=== PATIENT | female | born 1945 | race Caucasian/White ===

== ENCOUNTER 2021-06-23 21:02 | Inpatient (IN) ==
[2021-06-23] MEDS ORDERED: IOPAMIDOL 100 ML BOTTLE IV ONE ×2 (21:03)
[2021-06-23] MEDS ORDERED: ONDANSETRON 4 MG/2 ML VIAL IV ONE (21:49)
[2021-06-23] MEDS ORDERED: FAMOTIDINE/PF 20 MG/2 ML VIAL IV ONE (22:19)
[2021-06-23] MEDS ORDERED: 0.9 % SODIUM CHLORIDE 1,000 ML IV ONE ×2 (22:19→23:45)
[2021-06-23] MEDS ORDERED: PROCHLORPERAZINE 10 MG/2 ML VIAL IV ONE (22:19)
[2021-06-23] MEDS ORDERED: morphine 4 MG/ML VIAL IV ONE (22:19)
[2021-06-23 22:51] LABS: Basophils # (Auto) 0.02 K/mcL (0.00-0.30); Basophils % (Auto) 0.1 % (0.0-2.0); Eosinophils # (Auto) 0.14 K/mcL (0.00-0.70); Hemoglobin 14.3 g/dL (11.2-15.7); Lymphocytes # (Auto) 0.63 K/mcL (1.50-4.80); Lymphocytes % (Auto) 4.4 % (15.5-49.0); Mean Cell Volume 97.7 fL (80.0-100.0); Mean Corpuscular HGB Conc 33.3 g/dL (31.0-36.0); Mean Platelet Volume 13.6 fL (7.4-10.4); Monocytes % (Auto) 4.1 % (1.0-12.0); Neutrophils % (Auto) 90.4 % (38.0-78.0); Platelet Count 129 K/mcL (140-440); Red Cell Distribution Width 15.1 % (11.5-14.5); WBC 14.5 K/mcL (4.5-11.0)
[2021-06-23 23:32] LABS: ALT/SGPT 9 U/L (<40); AST/SGOT 18 U/L (<32); Albumin 4.4 gm/dL (3.2-5.2); Albumin/Globulin Ratio 1.8 (1.0-2.3); Alkaline Phosphatase 73 U/L (39-117); Bilirubin,Total 0.3 mg/dL (0.1-1.0); Blood Urea Nitrogen 25 mg/dL (8-23); Calcium 9.6 mg/dL (8.6-10.4); Carbon Dioxide 27 mmol/L (22-30); Chloride 103 mmol/L (96-108); Globulin 2.4 gm/dL (2.2-3.7); Glomerular Filtration Rate 63; Glucose 112 mg/dL (70-105)
[2021-06-24] MEDS ORDERED: morphine 4 MG/ML VIAL IV ONE (02:07)
[2021-06-24] MEDS ORDERED: PROCHLORPERAZINE 10 MG/2 ML VIAL IV ONE (02:23)
[2021-06-24] MEDS ORDERED: METOCLOPRAMIDE 10 MG/2 ML VIAL IV ONE (02:25)
--- NOTE | 2021-06-24 02:52 | Cat Scan Report ---
CLINICAL INFORMATION: Dyspnea COMPARISON: Chest CT 11/28/2010. TECHNIQUE: 50ml of Isovue-370 were injected intravenously. Using SmartPrep to maximize pulmonary artery opacification, .625mm helical slices were obtained from the lung apices through the lung bases. Following reconstruction, 2.5 mm sagittal, coronal, and axial reformations were processed. The exam was reviewed at mediastinal, lung, and bone windows. The exam was performed using radiation dose optimization techniques including, but not limited to, automated exposure control, adjustment of the mA and/or kV according to patient size and use of iterative reconstruction technique. FINDINGS: Pulmonary parenchymal windows mild interstitial edema throughout both lungs including the interlobular septa. In addition, mild patchy groundglass airspace disease in the bronchovascular regions of both lungs is compatible with alveolar edema. No residual infiltrates. No effusions. Mediastinal windows show the heart is moderately enlarged-increased from previous exam. There is mild dilatation of the left ventricle with a probable subendocardial infarct in the left ventricular apex. Mild calcified and fibrofatty lack is scattered in the coronary arteries. The pulmonary arteries show moderate diffuse enlargement compatible with CHF. There is no evidence of emboli. Thoracic aorta is normal diameter with diffuse intimal thickening. There is no adenopathy in the mediastinal, hilar or axillary regions. Gastric lap band is seen in the fundal region. Moderate diffuse wall thickening of the esophagus is new from prior exam and suggests peptic disease or other infiltrative process. Bone soft tissue chest wall show no abnormality. IMPRESSION: 1. Moderate congestive heart failure. No evidence of pulmonary embolus. The heart is moderately enlarged with a probable subendocardial infarct in the left ventricular apex. Please correlate clinically. 2. Diffuse wall thickening of the esophagus new from 2011 CT. This likely reflects peptic disease or other infiltrative process. Interpreted and Authenticated by: Joel Can 06/24/21
--- NOTE | 2021-06-24 03:00 | XRay Report ---
CLINICAL INFORMATION: COMPARISON: None. TECHNIQUE: PA and Lateral views FINDINGS: The heart is mildly enlarged. Thoracic aortic ectasia noted. The remaining mediastinum is normal. Pulmonary vessels are mildly distended and there is minimal interstitial edema throughout both lungs. No infiltrates or effusions. Left diaphragm slightly elevated. Bones and soft tissues are normal. IMPRESSION: Mild CHF. Interpreted and Authenticated by: Joel Can 06/24/21
[2021-06-24] MEDS ORDERED: PROCHLORPERAZINE 10 MG/2 ML VIAL IV PRN (03:09)
[2021-06-24] MEDS ORDERED: NALOXONE HCL 0.4 MG/ML VIAL IV PRN (03:11)
--- NOTE | 2021-06-24 03:17 | Emergency Department Note ---
HPI General Chief complaint: Nausea/Vomiting/Diarrhea Stated complaint: N/V Time Seen by Provider: 06/23/21 21:22 Source: patient Mode of arrival: wheelchair Limitations: no limitations History of Present Illness HPI Narrative: 76-year-old female with remote history of lap band in 2004, MS, ankylosing spondyloarthritis on methotrexate, presents to the emergency department acute nausea vomiting since 3 PM this afternoon. Initially clear and then consisting of food. No bile or blood. However nausea persisted and so comes into the ER. States normal bowel movement today. With no melena gross blood. Epigastric discomfort pain constant 10 out of 10. No fevers or chills. No chest pain shortness of breath. No recent travel sick contacts ingestion of undercooked raw or spoiled foods. and daughter at bedside. Related Data Home Medications Medication Instructions Recorded Confirmed multivit with 1 tab PO QDAY tab 05/29/17 03/12/21 uqyhgpak-onsg-ZV-lutein 8 mg iron-400 mcg-300 mcg tablet (Centrum Silver Women) potassium chloride 10 mEq 10 meq PO QDAY 05/29/17 03/12/21 capsule,extended release topiramate 100 mg tablet (Topamax) 100 mg PO QDAY tab 05/29/17 03/12/21 acetaminophen 650 mg 650 mg PO Q8H tab 11/26/20 03/12/21 tablet,extended release (Tylenol 8 Hour) calcium citrate-vitamin D3 PO QDAY 11/26/20 03/12/21 [Calcium Citrate + D] diclofenac sodium 1 % topical gel See Rx Instructions TOPICAL TID g 11/26/20 03/12/21 (Voltaren) duloxetine 30 mg capsule,delayed 30 mg PO BID 11/26/20 03/12/21 release hydrocodone 7.5 mg-acetaminophen 1 tab PO Q12H PRN tab 11/26/20 03/12/21 325 mg tablet levothyroxine 112 mcg capsule 112 mcg PO QDAY 11/26/20 03/12/21 (Tirosint) modafinil 200 mg tablet 200 mg PO QAM 11/26/20 03/12/21 simvastatin 20 mg tablet (Zocor) 20 mg PO QHS 11/26/20 03/12/21 amoxicillin 500 mg tablet 2,000 mg PO ONCE PRN tab 11/27/20 03/12/21 baclofen 10 mg tablet 10 mg PO QDAY PRN tab 11/27/20 03/12/21 clonazepam 0.5 mg tablet 0.5 mg PO QHS tab 11/27/20 03/12/21 cyanocobalamin (vitamin B-12) 3,000 mcg IM QMONTH ml 11/27/20 03/12/21 1,000 mcg/mL injection solution kulwant's leg cramp .ROUTE 11/27/20 03/12/21 ldojr-usqja-4-[id number]-ees-hsykej PO 11/27/20 03/12/21 naproxen sodium 220 mg capsule 220 mg PO ONCE cap 11/27/20 03/12/21 (Aleve) pregabalin [Lyrica] PO BID 11/27/20 03/12/21 Previous Rx's Medication Instructions Recorded Ketamine nasal spray 50mg/mL (0.1 See Rx Instructions .ROUTE 02/04/21 mL per spray) .COMPLEX #30 unit celecoxib 100 mg capsule 100 mg PO BID #60 cap 04/02/21 Allergies Allergy/AdvReac Type Severity Reaction Status Date / Time acetaminophen Allergy Unknown Unknown Verified 06/23/21 21:05 adhesive tape AdvReac Intermediate Unknown Verified 06/23/21 21:05 cephalexin AdvReac Intermediate Unknown Verified 06/23/21 21:05 Sulindac [From Clinoril] AdvReac Intermediate Unknown Verified 06/23/21 21:05 propoxyphene napsylate Allergy Unknown Unknown Uncoded 11/27/20 14:34 Review of Systems ROS ROS Narrative: 10 point review of system is otherwise negative except as mentioned in HPI. PFSH Narrative Patient History Narrative: Narrative: Medical/Surgical/Family History All Active Problems History of cataract extraction (Chronic ~2012) Hx of laparoscopic gastric banding (Chronic ~2004) History of surgery (Chronic) Undifferentiated inflammatory polyarthritis (Chronic) Encounter for long-term current use of high risk medication (Chronic) Polyarthralgia (Chronic) Myalgia (Chronic) Back pain (Chronic) Medical History Ankylosing spondylitis Back pain Bilateral ankle pain Bilateral elbow joint pain Bilateral hand pain Bilateral knee pain Bilateral leg pain Bilateral primary osteoarthritis of knee Central stenosis of spinal canal Cerebral arteritis Chronic neck pain Chronic shoulder pain DDD (degenerative disc disease) Depression Difficulty staying asleep Difficulty swallowing Dry eyes Dry mouth Easy bruising Encounter for long-term current use of high risk medication Facet arthropathy Fatigue Fibromyalgia Gastritis GCA (giant cell arteritis) Heart murmur History of compression fracture of spine (~11/2017) L2-L3 History of dysmenorrhea Hyperlipidemia Idiopathic progressive neuropathy Impairment of balance Inflammatory polyarthropathy Intervertebral disc disorder with radiculopathy of lumbar region Intervertebral disc protrusion Joint pain Joint stiffness Knee osteoarthritis Left shoulder pain Leg cramps Leg numbness Leg weakness Low back pain Lumbar nerve root impingement Memory loss Migraines Multifactorial functional impairment Multiple sclerosis Muscle spasm Muscle tenderness Musculoskeletal pain Myalgia Neurologic abnormality Night sweats Numbness and tingling of both feet Numbness in both hands Obesity On custodial drug therapy Osteoarthritis Paralyzed hemidiaphragm Peripheral neuropathy Polyarthralgia Sleep apnea Spine pain Thrombocytopenia Thyroid cancer (~2017) TMJ pain dysfunction syndrome Undifferentiated inflammatory polyarthritis Vitamin D deficiency Surgical History History of cataract extraction (~2012) History of surgery Synovial cyst Rt 4th toe Hx of laparoscopic gastric banding (~2004) Family History Mother , Age 79 - Sepsis Osteoarthritis Rheumatoid arthritis Osteoporosis Colon cancer Colitis Heart disease Hypertension Father , Age 58 - Gun Shot Wound Osteoarthritis Social History Smoking Status: Never smoker Alcohol Intake Frequency: does not drink Substance Use: does not use Exam Narrative Narrative: (Please note that portions of this note may have been completed with a voice recognition program. Efforts were made to edit the dictations but occasionally words are mis-transcribed) CONSTITUTIONAL: Well-nourished pleasant polite elderly female. Appears uncomfortable nauseous. not in acute distress. Non toxic. Awake alert and oriented x3. Cooperative, follows commands. HEAD: Normocephalic. Atraumatic. EYES: EOMI ENT: MM dry NECK: Supple. Soft cervical collar in place secondary to cervical lumbar radiculopathy spinal stenosis. Trachea midline CARDIOVASCULAR: Adequate peripheral perfusion. S1-S2. Regular rate and rhythm. No murmurs rubs gallops. No JVD. No lower extremity edema. +2 radial pulses bilaterally. PULMONARY: Nonlabored. Speaking full sentences. Clear to auscultation bilaterally. No rhonchi wheeze or crackles. ABDOMINAL: Soft. Nondistended. Lap band palpated in the right epigastric region. She is tender in the epigastric region with mild guarding no rebound or rigidity. Positive bowel sounds. EXTREMITIES: No gross deformities. Moves all 4 extremities with good strength and tone. SKIN: Warm and dry. No rash. No petechiae. NEUROLOGY: Sensation is intact. No gross focal deficits. GCS of 15 General Limitations: no limitations Course Vital Signs Vital signs: Vital Signs Temperature 36.1 C 06/23/21 21:03 Pulse Rate 66 06/23/21 21:03 Respiratory Rate 18 06/23/21 21:03 Blood Pressure 179/84 06/23/21 21:03 Pulse Oximetry (%) 96 06/23/21 21:03 Temperature 36.1 C 06/23/21 21:03 Pulse Rate 74 06/24/21 03:00 Respiratory Rate 18 06/23/21 21:03 Blood Pressure 152/74 06/23/21 23:31 Pulse Oximetry (%) 100 06/24/21 03:00 MDM MDM Narrative Medical decision making narrative: Differential diagnosis includes obstruction ileus rupture viral bacterial gastroenteritis colitis UTI pyelonephritis sepsis bacteremia constipation etc. History and physical are consistent with a possible small bowel obstruction. NPO. IV fluid hydration. Zofran Pepcid. States continued nausea. Compazine morphine have been given. She is resting more comfortably. Twelve-lead EKG per ED MD interpretation does show sinus bradycardia at 53 bpm. Normal axis. No ST elevations or depressions. No T wave abnormalities. No ectopy. Normal intervals. No old EKG. I was called to bedside secondary to reported hypoxia h owever asymptomatic to 88%. Unclear if this is secondary to the morphine. She is awake alert oriented x4. She denies chest pain shortness of breath. Did drop to 88%. Was placed on 2 L. Lungs remain clear to auscultation bilaterally. She is lying down supine at a slight angle 30 degrees secondary to spinal stenosis. Has no respiratory distress. 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 Chest x-ray was obtained and troponin was added. Troponin is negative. Chest x-ray per ED MD interpretation does show a widened mediastinum with cardiomegaly. However had already obtained CT abdomen pelvis with IV contrast. And per radiologist does show a la paroscopic adjustable gastric band which surrounds the upper portion of the stomach and appears to be in the appropriate position. However she does have a small bowel obstruction transition point is indeterminate probably in the right lower quadrant. Mild ascites noted in the perihepatic perisplenic and cul-de-sac. Diverticulosis without diverticulitis. Normal appendix. Bilateral nonobstructive renal stones. Patient remains n.p.o. Continues to be nauseous. And so IV Reglan has been ordered. As well as IV morphine for return of pain control. I did speak to the patient regards to findings clinical impressions and treatment plan. I am hesitant to place an NG tube secondary to this LAP- BAND and concern for rupture. And so will remain n.p.o. CT angio of the chest was ordered secondary to the abnormal chest x-ray. And was bolused a second liter of 0.9 normal saline secondary to the IV dye load. CTA of the chest per radiologist shows no pulmonary embolus. Does show moderate congestive heart failure. Enlarged heart. Concern for subendocardial infarct in the left ventricular apex. Again EKG showed no ischemic changes. And troponin was negative. She has no chest pain or shortness of breath. On reevaluation after the second liter she remains clear to auscultation bilaterally. She is on [address] also shows diffuse wall thickening of the esophagus which is new since 2010. Which could represent peptic ulcer disease. She did receive Pepcid will order IV Protonix. Again updated patient and on results clinical impressions treatment plan. Minute. Agreeable questions have been answered at length. Urine analysis was dipped. Dr. Holly was spoken to at approximately 3:15 AM. And has accepted patient. Bridging orders have been placed. Agrees with no NG tube at this time. Initially I was going to order Lasix. He advises against diuresis secondary to likely third spacing from nausea vomiting SBO. Will be started on maintenance fluid low-dose at 30 cc an hour. Final Impressions: 1. acute SBO 2. fluid overload 3. chronic thrombocytopenia, on MTX Disposition: med sx Condition: fair Lab Data Result diagrams: 06/23/21 22:18 06/23/21 22:18 Labs: Lab Results 06/23/21 06/23/2122 Range/Units 22:18 22:18 22:18 WBC 14.5 H (4.5-11.0) K/mcL RBC 4.40 (3.59-5.38) M/mcL Hgb 14.3 (11.2-15.7) g/dL Hct 43.0 (34.1-44.9) % MCV 97.7 (80.0-100.0) fL MCH 32.5 (26.0-34.0) pg MCHC 33.3 (31.0-36.0) g/dL RDW 15.1 H (11.5-14.5) % Plt Count 129 L (140-440) K/mcL MPV 13.6 H (7.4-10.4) fL Neut % (Auto) 90.4 H (38.0-78.0) % Lymph % (Auto) 4.4 L (15.5-49.0) % Borden % (Auto) 4.1 (1.0-12.0) % Eos % (Auto) 1.0 (0.0-7.0) % Baso % (Auto) 0.1 (0.0-2.0) % Lymph # (Auto) 0.63 L (1.50-4.80) K/mcL Borden # (Auto) 0.60 (0.10-0.90) K/mcL Eos # (Auto) 0.14 (0.00-0.70) K/mcL Baso # (Auto) 0.02 (0.00-0.30) K/mcL Absolute Neutrophils 13.09 H (1.80-8.00) K/mcL VBG Lactic Acid (0.5-2.0) mmol/L Sodium 142 (133-145) mmol/L Potassium 4.0 (3.3-5.1) mmol/L Chloride 103 (96-108) mmol/L Carbon Dioxide 27 (22-30) mmol/L Anion Gap 12.0 (8.0-16.0) BUN 25 H (8-23) mg/dL Creatinine 0.9 (0.6-1.1) mg/dL GFR Calculation 63 Glucose 112 H (70-105) mg/dL Calcium 9.6 (8.6-10.4) mg/dL Magnesium 1.7 (1.6-2.5) mg/dL Total Bilirubin 0.3 (0.1-1.0) mg/dL AST 18 (<32) U/L ALT 9 (<40) U/L Alkaline Phosphatase 73 (39-117) U/L Troponin T < 0.01 (<0.03) ng/mL Total Protein 6.8 (5.9-8.4) gm/dL Albumin 4.4 (3.2-5.2) gm/dL Globulin 2.4 (2.2-3.7) gm/dL Albumin/Globulin Ratio 1.8 (1.0-2.3) Lipase 25 (7-60) U/L 06/23/21 Range/Units 23:05 WBC (4.5-11.0) K/mcL RBC (3.59-5.38) M/mcL Hgb (11.2-15.7) g/dL Hct (34.1-44.9) % MCV (80.0-100.0) fL MCH (26.0-34.0) pg MCHC (31.0-36.0) g/dL RDW (11.5-14.5) % Plt Count (140-440) K/mcL MPV (7.4-10.4) fL Neut % (Auto) (38.0-78.0) % Lymph % (Auto) (15.5-49.0) % Borden % (Auto) (1.0-12.0) % Eos % (Auto) (0.0-7.0) % Baso % (Auto) (0.0-2.0) % Lymph # (Auto) (1.50-4.80) K/mcL Borden # (Auto) (0.10-0.90) K/mcL Eos # (Auto) (0.00-0.70) K/mcL Baso # (Auto) (0.00-0.30) K/mcL Absolute Neutrophils (1.80-8.00) K/mcL VBG Lactic Acid 1.9 (0.5-2.0) mmol/L Sodium (133-145) mmol/L Potassium (3.3-5.1) mmol/L Chloride (96-108) mmol/L Carbon Dioxide (22-30) mmol/L Anion Gap (8.0-16.0) BUN (8-23) mg/dL Creatinine (0.6-1.1) mg/dL GFR Calculation Glucose (70-105) mg/dL Calcium (8.6-10.4) mg/dL Magnesium (1.6-2.5) mg/dL Total Bilirubin (0.1-1.0) mg/dL AST (<32) U/L ALT (<40) U/L Alkaline Phosphatase (39-117) U/L Troponin T (<0.03) ng/mL Total Protein (5.9-8.4) gm/dL Albumin (3.2-5.2) gm/dL Globulin (2.2-3.7) gm/dL Albumin/Globulin Ratio (1.0-2.3) Lipase (7-60) U/L Discharge Plan Patient/Caregiver Discharge Instructions Pt seen by [facility] [employer]MER/PA only: No Patient Disposition: Xfer As Inpt ([facility]) Follow up with: Savana Downey MD [Primary Care Provider] - Prescriptions: No Action Ketamine nasal spray 50mg/mL (0.1 mL per spray) See Rx Instructions .ROUTE .COMPLEX Qty: 30 2RF Rx Instructions: 2 sprays each nostril Q4-6 hours PRN severe headache celecoxib 100 mg capsule 100 mg PO BID Qty: 60 2RF calcium citrate-vitamin D3 [Calcium Citrate + D] PO QDAY 0RF simvastatin [Zocor] 20 mg tablet 20 mg PO QHS 0RF duloxetine 30 mg capsule,delayed release(DR/EC) 30 mg PO BID 0RF modafinil 200 mg tablet 200 mg PO QAM 0RF hydrocodone-acetaminophen 7.5-325 mg tablet 1 tab PO Q12H PRN0RF levothyroxine [Tirosint] 112 mcg capsule 112 mcg PO QDAY 0RF acetaminophen [Tylenol 8 Hour] 650 mg tablet extended release 650 mg PO Q8H 0RF cyanocobalamin (vitamin B-12) 1,000 mcg/mL solution 3,000 mcg IM QMONTH 0RF pregabalin [Lyrica] PO BID 0RF Rx Instructions: 300 mg tdtzlbsf-wbe-fvdr-FA-lutein [Centrum Silver Women] 8 mg iron-400 mcg-300 mcg tablet 1 tab PO QDAY 0RF potassium chloride 10 mEq capsule, extended release 10 meq PO QDAY 0RF topiramate [Topamax] 100 mg tablet 100 mg PO QDAY 0RF diclofenac sodium [Voltaren] 1 % gel See Rx Instructions TOPICAL TID 0RF Label Comments: 400iu TOPICAL QID Rx Instructions: 400iu TOPICAL Tid topical three times daily baclofen 10 mg tablet 10 mg PO QDAY PRN0RF clonazepam 0.5 mg tablet 0.5 mg PO QHS 0RF naproxen sodium [Aleve] 220 mg capsule 220 mg PO ONCE 0RF amoxicillin 500 mg tablet 2,000 mg PO ONCE PRN0RF kulwant's leg cramp .Route 0RF Rx Instructions: 3 nightly buxze-wvtmi-2-qlh-kiw-jaehky PO 0RF
[2021-06-24 03:40] LABS: proBNP 188.1 pg/mL (<125.0)
[2021-06-24] MEDS: 0.9 % SODIUM CHLORIDE 1,000 ML IV SCH (04:07)
--- NOTE | 2021-06-24 04:13 | Cat Scan Report ---
CLINICAL INFORMATION: Abdominal pain nausea and vomiting. History of lap band COMPARISON: Abdomen and pelvic CT 04/19/2017 TECHNIQUE: Following enteric contrast, 80 cc of Isovue-370 were injected intravenously, and 60 seconds later, 0.625 mm helical slices were obtained from the mid heart through the subtrochanteric regions. Following reconstruction, 2.5 mm sagittal, coronal and axial reformatted images were processed and reviewed at bone, lung and soft tissue windows. Five minutes later, 0.625 mm helical slices were obtained from the mid heart through the kidneys and viewed at soft tissue windows.The exam was performed using radiation dose optimization techniques including, but not limited to, automated exposure control, adjustment of the mA and/or kV according to patient size and use of iterative reconstruction technique. FINDINGS: The lung bases show minimal subsegmental atelectasis. There are no effusions. The heart is mildly enlarged. Abdominal images show mild fatty change within the liver, but no focal hepatic lesion. The gallbladder and bile ducts are normal for age: CBD is 7 mm. Both adrenal glands, spleen, pancreas and aorta, including aortic branches, are normal in size configuration and attenuation without focal lesion. Both kidneys are normal and symmetric in size, position, configuration and attenuation: the left is 10 cm in length and the right is approximately 9.5 cm in length. There are two nonobstructing stones within the inferior calyces of the left kidney, 4 mm and 2 mm, respectively. A 2 mm nonobstructing stone seen within the superior calyx of the left kidney. 2.3 cm simple cyst noted inferior pole of the right kidney. Pelvic images show the urinary bladder is unremarkable. Uterus is anteflexed and normal menopausal size spanning 5 x 3 cm. There appears to be thickening of endometrium-16 mm which is new from the previous exam. The region of the ovaries is normal. Gastric lap band is properly positioned encircling the gastric fundus. Mild wall thickening of the distal thoracic esophagus likely reflects peptic disease. The stomach, duodenum and jejunum are moderately dilated to the false pelvis level. The ileum is markedly decompressed with minimal stool within the colon. Findings compatible with a high-grade partial small bowel obstruction of the distal jejunum due to adhesions or stricture. The exact transition point is indeterminate. Small amount of free fluid is noted in the perihepatic, perisplenic and intrapelvic region. There is no free air or adenopathy. Bone windows show degenerative changes in the lumbar spine with spondylitic defects at L4-5. IMPRESSION: 1. High-grade partial small bowel obstruction of the distal jejunum. Transition point is indeterminate. It appears to be due to adhesions or stricture. Small amount of free fluid in the abdomen and pelvis suggests early third spacing. There is no free air to suggest perforation. 2. Small nonobstructing stones in each kidney as previously seen. 3. Mild thickening of the endometrium. This could also indicate the presence of a fibroid. Suggest pelvic ultrasound for further evaluation. 4. Gastric lap band properly positioned. There is mild wall thickening the distal esophagus which could indicate peptic disease or other infiltrative process. Interpreted and Authenticated by: Joel Can 06/24/21
[2021-06-24] MEDS: ONDANSETRON 4 MG/2 ML VIAL IV SCH ×3 (05:33→22:13)
[2021-06-24] MEDS: PANTOPRAZOLE 40 MG VIAL IV SCH ×3 (07:03→16:27)
[2021-06-24] MEDS: morphine 4 MG/ML VIAL IV PRN ×2 (10:23→19:55)
[2021-06-24 10:49] LABS: proBNP 696.9 pg/mL (<125.0)
[2021-06-24] MEDS: METOCLOPRAMIDE 10 MG/2 ML VIAL IV SCH ×3 (12:02→23:50)
--- NOTE | 2021-06-24 13:46 | General Surg History&Physical ---
HPI History of Present Illness Patient information: Note initiated : 06/24/21 at 1:31 pm Service Date, if different from initiated Date: [] Patient: Tammy Escalante 76 y/o F admitted on 06/24/21 for N/V. Chief Complaint: [] Chief complaint: Small bowel obstruction History of present illness: Ms. Escalante is a 76 year old F admitted for treatment of possible small bowel obstruction. The patient states that she had acute onset of epigastric pain extending across her upper and lower abdomen. This was followed by nausea with vomiting. She finally sought attention in the emergency room. It was noted that she had a mildly elevated white count and CT evidence of a possible small bowel obstruction. The patient states that she had regular bowel movement with flatus at 1930 hrs. last evening. She has not had any since that time. She has tenderness to palpation in her upper abdomen but denies nausea at this time. Clinically the patient is nontoxic and she may very well have adynamic ileus. She is admitted and will have small bowel follow-through in the morning. She has a history of a LAP-BAND surgery in 2004 and had weight loss from 300 pounds to 180 pounds. She has not had other abdominal surgery. Review of Systems All systems: reviewed and no additional remarkable complaints except as stated (Arthritis arthralgia) Constitutional Constitutional: Present weight loss; Absent fatigue or malaise Cardiovascular Cardiovascular: Absent dyspnea on exertion, palpatations or rapid heart rate Gastrointestinal Gastrointestinal: Present abdominal pain, cramping, early satiety, nausea and vomiting Musculoskeletal Musculoskeletal: Present arthralgias, back pain and myalgias Neurological Neurological: Absent abnormal gait, abnormal speech, dizziness, focal weakness, headache(s) or memory loss Psychiatric Psychiatric: Absent abnormal sleep pattern or depression Hematologic/Lymphatic Hematologic/Lymphatic: Absent easy bleeding, easy bruising or lymphadenopathy Allergic/Immunologic Allergic/Immunologic: Absent tongue swelling, throat swelling, uticaria, wheezing or lip swelling PFSH PFSH All Active Problems (Updated 06/24/21 @ 13:45 by Dylon Holly MD) History of sleep apnea (Acute) Multiple sclerosis (Acute) Degenerative disc disease (Acute) Partial small bowel obstruction (Acute) History of cataract extraction (Chronic ~2012) Hx of laparoscopic gastric banding (Chronic ~2004) History of surgery (Chronic) Undifferentiated inflammatory polyarthritis (Chronic) Encounter for long-term current use of high risk medication (Chronic) Polyarthralgia (Chronic) Myalgia (Chronic) Back pain (Chronic) Medical History Ankylosing spondylitis Back pain Bilateral ankle pain Bilateral elbow joint pain Bilateral hand pain Bilateral knee pain Bilateral leg pain Bilateral primary osteoarthritis of knee Central stenosis of spinal canal Cerebral arteritis Chronic neck pain Chronic shoulder pain DDD (degenerative disc disease) Depression Difficulty staying asleep Difficulty swallowing Dry eyes Dry mouth Easy bruising Encounter for long-term current use of high risk medication Facet arthropathy Fatigue Fibromyalgia Gastritis GCA (giant cell arteritis) Heart murmur History of compression fracture of spine (~11/2017) L2-L3 History of dysmenorrhea Hyperlipidemia Idiopathic progressive neuropathy Impairment of balance Inflammatory polyarthropathy Intervertebral disc disorder with radiculopathy of lumbar region Intervertebral disc protrusion Joint pain Joint stiffness Knee osteoarthritis Left shoulder pain Leg cramps Leg numbness Leg weakness Low back pain Lumbar nerve root impingement Memory loss Migraines Multifactorial functional impairment Multiple sclerosis Muscle spasm Muscle tenderness Musculoskeletal pain Myalgia Neurologic abnormality Night sweats Numbness and tingling of both feet Numbness in both hands Obesity On penitentiary drug therapy Osteoarthritis Paralyzed hemidiaphragm Peripheral neuropathy Polyarthralgia Sleep apnea Spine pain Thrombocytopenia Thyroid cancer (~2017) TMJ pain dysfunction syndrome Undifferentiated inflammatory polyarthritis Vitamin D deficiency Surgical History History of cataract extraction (~2012) History of surgery Synovial cyst Rt 4th toe Hx of laparoscopic gastric banding (~2004) Family History Mother , Age 79 - Sepsis Osteoarthritis Rheumatoid arthritis Osteoporosis Colon cancer Colitis Heart disease Hypertension Father , Age 58 - Gun Shot Wound Osteoarthritis Social History marital status: education level: college occupational status: disabled physical activity: none smoking status: Never smoker alcohol intake frequency: does not drink substance use type: does not use MEDS/ALLERGIES Home Medications and Allergies Home Medications Medication Instructions Recorded Confirmed Type potassium chloride 10 mEq 10 meq PO HS 05/29/17 06/24/21 History capsule,extended release topiramate 100 mg tablet (Topamax) 100 mg PO HS tab 05/29/17 06/24/21 History acetaminophen 650 mg 650 mg PO Q8H tab 11/26/20 06/24/21 History tablet,extended release (Tylenol 8 Hour) calcium citrate-vitamin D3 See Rx Instructions .ROUTE .COMPLEX 11/26/20 06/24/21 History [Calcium Citrate + D] diclofenac sodium 1 % topical gel See Rx Instructions TOPICAL TID g 11/26/20 06/24/21 History (Voltaren) duloxetine 30 mg capsule,delayed 30 mg PO DAILY 11/26/20 06/24/21 History release levothyroxine 112 mcg capsule 112 mcg PO QDAY 11/26/20 06/24/21 History (Tirosint) modafinil 200 mg tablet 200 mg PO QAM 11/26/20 06/24/21 History simvastatin 20 mg tablet (Zocor) 20 mg PO QHS 11/26/20 06/24/21 History amoxicillin 500 mg tablet 2,000 mg PO ONCE PRN tab 11/27/20 06/24/21 History baclofen 10 mg tablet 10 mg PO HS tab 11/27/20 06/24/21 History clonazepam 0.5 mg tablet 0.25 mg PO QHS tab 11/27/20 06/24/21 History cyanocobalamin (vitamin B-12) 3,000 mcg IM QMONTH ml 11/27/20 06/24/21 History 1,000 mcg/mL injection solution kulwant's leg cramp 3 tab PO HS 11/27/20 06/24/21 History [id number] 575 mg PO HS 11/27/20 06/24/21 History pregabalin [Lyrica] 300 mg PO BID 11/27/20 06/24/21 History Ketamine nasal spray 50mg/mL (0.1 See Rx Instructions .ROUTE 06/24/21 06/24/21 History mL per spray) .COMPLEX PRN calcitriol 0.25 mcg capsule 1 cap PO QDAY 06/24/21 06/24/21 History celecoxib 100 mg capsule 200 mg PO BID 06/24/21 06/24/21 History folic acid 1 mg tablet 5 mg PO HS 06/24/21 06/24/21 History hydrocodone 7.5 mg-acetaminophen 7.5 - 325 tab PO PRN PRN 06/24/21 06/24/21 History 325 mg tablet methotrexate sodium 2.5 mg tablet 5 tab PO WEEKLY 06/24/21 06/24/21 History Allergies Allergy/AdvReac Type Severity Reaction Status Date / Time acetaminophen Allergy Unknown Unknown Verified 06/24/21 05:19 adhesive tape AdvReac Intermediate Unknown Verified 06/24/21 05:19 cephalexin AdvReac Intermediate Unknown Verified 06/24/21 05:19 Sulindac [From Clinoril] AdvReac Intermediate Unknown Verified 06/24/21 05:19 propoxyphene napsylate Allergy Unknown Unknown Uncoded 11/27/20 14:34 Physical Examination Vital Signs Vital signs: Temp Pulse Resp BP Pulse Ox 98.4 F 85 20 146/73 94 06/24/21 08:00 06/24/21 08:00 06/24/21 08:00 06/24/21 08:00 06/24/21 08:00 General physical appearance General physical exam: well developed, well nourished, moderate distress, moderate pain and other (Overweight) Eyes Eye exam: PERRL and normal ocular movement ENT ENT exam: normal mucosa, no hearing loss and no congestion Head Head exam IM: Present atraumatic, normal inspection and normocephalic Neck Neck exam: no masses, no bruits, trachea midline, no lymphadenopathy and no venous distension Cardiovascular Cardiovascular exam IM: Present normal rate and rhythm, RRR, +S1 and +S2; Absent JVD or tachycardia Respiratory Respiratory exam: normal expansion, normal respiratory effort and clear to auscultation Abdomen Abdomen: Present tender (RUQ), bowel sounds (Normal bowel sounds) and distended (Mild abdominal distention) Integumentary Integumentary: Present no rash, no growths and no abnormal pigmentation Neurologic Neurologic: Present normal coordination and normal sensation Musculoskeletal Musculoskeletal: Present normal gait and normal posture Psychiatric Psychiatric: Present oriented to time, oriented to person, oriented to place, speech is normal and memory intact Results Labs Result diagrams: 06/23/21 22:18 06/23/21 22:18 Labs: Abnormal lab results 06/23/21 06/23/21 06/23/21 Range/Units 22:18 22:18 22:18 WBC 14.5 H (4.5-11.0) K/mcL RDW 15.1 H (11.5-14.5) % Plt Count 129 L (140-440) K/mcL MPV 13.6 H (7.4-10.4) fL Neut % (Auto) 90.4 H (38.0-78.0) % Lymph % (Auto) 4.4 L (15.5-49.0) % Lymph # (Auto) 0.63 L (1.50-4.80) K/mcL Absolute Neutrophils 13.09 H (1.80-8.00) K/mcL BUN 25 H (8-23) mg/dL Glucose 112 H (70-105) mg/dL NT-Pro-B Natriuret Pep 188.1 H (<125.0) pg/mL 06/24/21 Range/Units 09:24 WBC (4.5-11.0) K/mcL RDW (11.5-14.5) % Plt Count (140-440) K/mcL MPV (7.4-10.4) fL Neut % (Auto) (38.0-78.0) % Lymph % (Auto) (15.5-49.0) % Lymph # (Auto) (1.50-4.80) K/mcL Absolute Neutrophils (1.80-8.00) K/mcL BUN (8-23) mg/dL Glucose (70-105) mg/dL NT-Pro-B Natriuret Pep 696.9 H (<125.0) pg/mL Diabetes panel 06/23/21 Range/Units 22:18 Sodium 142 (133-145) mmol/L Potassium 4.0 (3.3-5.1) mmol/L Chloride 103 (96-108) mmol/L Carbon Dioxide 27 (22-30) mmol/L BUN 25 H (8-23) mg/dL Creatinine 0.9 (0.6-1.1) mg/dL Glucose 112 H (70-105) mg/dL Calcium 9.6 (8.6-10.4) mg/dL AST 18 (<32) U/L ALT 9 (<40) U/L Alkaline Phosphatase 73 (39-117) U/L Total Protein 6.8 (5.9-8.4) gm/dL Albumin 4.4 (3.2-5.2) gm/dL Calcium panel 06/23/21 Range/Units 22:18 Calcium 9.6 (8.6-10.4) mg/dL Albumin 4.4 (3.2-5.2) gm/dL Pituitary panel 06/23/21 Range/Units 22:18 Sodium 142 (133-145) mmol/L Potassium 4.0 (3.3-5.1) mmol/L Chloride 103 (96-108) mmol/L Carbon Dioxide 27 (22-30) mmol/L BUN 25 H (8-23) mg/dL Creatinine 0.9 (0.6-1.1) mg/dL Glucose 112 H (70-105) mg/dL Calcium 9.6 (8.6-10.4) mg/dL Adrenal panel 06/23/21 Range/Units 22:18 Sodium 142 (133-145) mmol/L Potassium 4.0 (3.3-5.1) mmol/L Chloride 103 (96-108) mmol/L Carbon Dioxide 27 (22-30) mmol/L BUN 25 H (8-23) mg/dL Creatinine 0.9 (0.6-1.1) mg/dL Glucose 112 H (70-105) mg/dL Calcium 9.6 (8.6-10.4) mg/dL Total Bilirubin 0.3 (0.1-1.0) mg/dL AST 18 (<32) U/L ALT 9 (<40) U/L Alkaline Phosphatase 73 (39-117) U/L Total Protein 6.8 (5.9-8.4) gm/dL Albumin 4.4 (3.2-5.2) gm/dL All other labs normal. A/P Assessment and plan (1) Partial small bowel obstruction: Status: Acute (2) Degenerative disc disease: Status: Acute (3) Multiple sclerosis: Status: Acute (4) History of sleep apnea: Status: Acute Narrative A/P Narrative: Small bowel follow-through Pro BNP Echocardiogram EKG Time Spent With Patient Time: Total time spent is greater than 50% in coordination of care (as documented) at patient's floor/unit and/or counseling patient:
--- NOTE | 2021-06-24 14:39 | XRay Report ---
CLINICAL INFORMATION: A small bowel obstruction the distal jejunum also gastric lap band COMPARISON: None. TECHNIQUE: Gastrografin was ingested and fluoroscopic observation of the esophagus stomach and small bowel was obtained.. Spot films were obtained of the esophagus stomach and duodenum. Total fluoroscopy time: 39 seconds FINDINGS: The esophagus is normal in contour, caliber, and motility. Gastric lap band constricts the gastric fundus-as expected. The Phi angle is normal: 28 degrees (range normal 4 to 58 degrees (and there is no evidence of gastric band erosion erosion, perforation or slippage. The stomach is normal size with normal rugal fold pattern pattern. The duodenum and jejunum are moderately dilated to the level of the stricture in the distal jejunum within the right false pelvis. The distal ileum is small. The small bowel transit time is delayed-approximately two hours. IMPRESSION: Partial small bowel obstruction due to adhesions or strictures of the distal jejunum in the right lower quadrant. The small bowel proximal to the point of obstruction is moderately dilated and the distal small bowel is decompressed. Small bowel transit time is delayed-approximately two hours. Gastric lap band in proper position without evidence of complication Interpreted and Authenticated by: Joel Can 06/24/21
[2021-06-24] MEDS: PREGABALIN 150 MG CAPSULE PO SCH (19:55)
[2021-06-25] MEDS: 0.9 % SODIUM CHLORIDE 1,000 ML IV SCH (04:59)
[2021-06-25] MEDS: METOCLOPRAMIDE 10 MG/2 ML VIAL IV SCH ×2 (05:14→11:46)
[2021-06-25] MEDS: ONDANSETRON 4 MG/2 ML VIAL IV SCH ×2 (05:14→13:44)
[2021-06-25] MEDS: PANTOPRAZOLE 40 MG VIAL IV SCH ×2 (07:13)
--- NOTE | 2021-06-25 08:19 | EKG ---
[facility] Test Date: 2021-06-23 Pat Name: Tammy Escalante Department: ED Room: Gender: Female [employer] Supervisor: AW : [id number] Requested By: Dulce Quispe Order Number: [id number] Reading MD: Tello Auguste D.O. Measurements Intervals [place] Rate: 53 P: 18 AK: 174 QRS: 8 QRSD: 97 T: 32 QT: 425 QTc: 399 Interpretive Statements Sinus rhythm Abnormal R-wave progression, early transition Electronically Signed On 06-25-2021 8:19:05 PDT by Tello Auguste D.O. /store/M0/[id number]
[2021-06-25] MEDS: PREGABALIN 150 MG CAPSULE PO SCH (08:38)
--- NOTE | 2021-06-25 08:53 | XRay Report ---
CLINICAL INFORMATION: FOLLOW -UP OF SMALL BOWEL OBSTRUCTION COMPARISON: Abdomen and pelvic CT 06/23/2021 FINDINGS: The stool gas pattern is now unremarkable. Enteric contrast, administered from the small bowel follow through study, has almost totally evacuated with minimal residual within the colon. Gastric lap band remains in stable satisfactory position overlying the gastric fundus. There is no free air, soft tissue mass, organomegaly or pathologic calcification. IMPRESSION: Interval resolution of small bowel obstruction pattern. Negative exam Interpreted and Authenticated by: Joel Can 06/25/21
[2021-06-25] MEDS ORDERED: DULoxetine 30 MG CAPSULE PO SCH (09:00)
[2021-06-25] MEDS ORDERED: FLU VACC QS2021-22(6MOS UP)/PF 60 MCG/0.5 ML SYRINGE IM ONE (10:00)
--- NOTE | 2021-06-25 13:44 | Discharge Summary ---
Discharge Provider Provider Patient information: Note initiated : 06/25/21 at 1:42 pm Service Date, if different from initiated Date: [] Patient: Tammy Escalante 76 y/o F admitted on 06/24/21 for N/V. Chief Complaint: [] Date of admission: 06/24/21 03:56 Discharge date: 06/25/21 Primary care physician: Savana Downey Admitting clinician: Dylon Holly Attending physician on admission: Dylon Holly Consults: 06/24/21 Consult to Physician [CONS] Stat Comment: Consulting Provider: Dylon Holly Reason For Exam: Physician to Consult Attending physician on discharge: Dylon Holly Discharging clinician: Dylon Holly COURSE Hospital Course Hospital course: 76-year-old female was admitted with partial small bowel obstruction. She presented with history of recurrent upper abdominal pain with nausea and vomiting. She was seen in the emergency room where it was noted that she had a mildly distended abdomen with tenderness and CT evidence of mid jejunal obstruction. The patient's only operative procedure was a lap band which was placed in 2004. She has not had any difficulty with it. The patient was admitted and placed on bowel rest. She had a small bowel follow-through performed on yesterday. This shows good transit through her lap band and into the bowel. Transit through the small bowel was 2hours. Since that time she has had multiple large bowel movements and has passed flatus. She has tolerated full liquids without difficulty. She is asymptomatic at this time. Patient is stable for discharge home. X-ray this morning shows resolution of the obstructive pattern of her small bowel. Discharge diagnosis: Partial small bowel obstruction Secondary discharge diagnosis: Hypothyroidism History of thyroid cancer status post thyroidectomy History of multiple sclerosis Obstructive sleep apnea Reason for admission: Recurrent abdominal pain with nausea and vomiting Procedures: None Pertinent studies/significant findings: Upper GI with small bowel follow-through Complications: None Time Spent with Patient Time attestation: Total time spent providing and/or coordinating discharge services: Physical Examination Vital Signs Vital signs: Temp Pulse Resp BP Pulse Ox 98.3 F 69 18 114/65 91 06/25/21 12:00 06/25/21 12:00 06/25/21 12:00 06/25/21 12:00 06/25/21 12:00 General physical appearance General physical exam: well developed, well nourished, no distress and no pain Eyes Eye exam: PERRL and normal ocular movement ENT ENT exam: normal pinna, normal mucosa and no congestion Head Head exam IM: Present atraumatic, normal inspection and normocephalic Neck Neck exam: no masses, no bruits, trachea midline, no lymphadenopathy and no venous distension Cardiovascular Cardiovascular exam IM: Present normal rate and rhythm, RRR, +S1 and +S2; Absent JVD Respiratory Respiratory exam: normal expansion, normal respiratory effort and clear to auscultation Abdomen Abdomen: Present soft, non tender and bowel sounds (Normal bowel sounds) Integumentary Integumentary: Present no rash, no growths and no abnormal pigmentation Neurologic Neurologic: Present normal coordination, normal sensation, disoriented, combat john and deep tendon reflexes Musculoskeletal Musculoskeletal: Present normal gait and normal posture Psychiatric Psychiatric: Present oriented to time, oriented to person, oriented to place, speech is normal and memory intact Discharge Plan Patient/Caregiver Discharge Instructions Activity: increase activity as tolerated Diet: Regular Diet Prescriptions: No Action calcium citrate-vitamin D3 [Calcium Citrate + D] See Rx Instructions .ROUTE .COMPLEX 0RF Rx Instructions: ca 630mg/D 500IU simvastatin [Zocor] 20 mg tablet 20 mg PO QHS 0RF duloxetine 30 mg capsule,delayed release(DR/EC) 30 mg PO DAILY 0RF modafinil 200 mg tablet 200 mg PO QAM 0RF levothyroxine [Tirosint] 112 mcg capsule 112 mcg PO QDAY 0RF acetaminophen [Tylenol 8 Hour] 650 mg tablet extended release 650 mg PO Q8H 0RF cyanocobalamin (vitamin B-12) 1,000 mcg/mL solution 3,000 mcg IM QMONTH 0RF pregabalin [Lyrica] 300 mg PO BID 0RF Rx Instructions: 300 mg potassium chloride 10 mEq capsule, extended release 10 meq PO HS 0RF topiramate [Topamax] 100 mg tablet 100 mg PO HS 0RF diclofenac sodium [Voltaren] 1 % gel See Rx Instructions TOPICAL TID 0RF Label Comments: 400iu TOPICAL QID Rx Instructions: 400iu TOPICAL Tid topical three times daily baclofen 10 mg tablet 10 mg PO HS 0RF clonazepam 0.5 mg tablet 0.25 mg PO QHS 0RF amoxicillin 500 mg tablet 2,000 mg PO ONCE PRN (Reason: predental) 0RF kulwant's leg cramp 3 tab PO HS 0RF Rx Instructions: 3 nightly ywgyn-wjfzr-[id number] 575 mg PO HS 0RF calcitriol 0.25 mcg capsule 1 cap PO QDAY 0RF Ketamine nasal spray 50mg/mL (0.1 mL per spray) See Rx Instructions .ROUTE .COMPLEX PRN (Reason: Headache) 0RF Rx Instructions: 2 sprays each nostril Q4-6 hours PRN severe headache celecoxib 100 mg capsule 200 mg PO BID 0RF hydrocodone-acetaminophen 7.5-325 mg tablet 7.5 - 325 tab PO PRN PRN (Reason: Pain) 0RF Label Comments: [NO ORIGINAL SIG] methotrexate sodium 2.5 mg tablet 5 tab PO WEEKLY 0RF Rx Instructions: wednesday night folic acid 1 mg Tablet 5 mg PO HS 0RF Follow Up Plan Follow up with: Savana Downey MD [Primary Care Provider] - Patient Disposition: Home, Self-Care Plan of Treatment: MiraLAX 17 g in 8 ounces of liquid 2 or 3 times daily as needed Prognosis: Good Rehab Potential: Good I certify that the patient requires SNF services: No Overall status at discharge: patient is progressing back to baseline Discharge Orders: Discharge Order (Routine); Ordered 06/25/21 Ordered By: Dylon Holly Pending Pending Pending: Diet Full Liquid Diet Start WedJun 24 141 Duloxetine HCl (Duloxetine 30 Mg Capsule) 30 mg PO DAILY [facility] Last Admin: 06/25/21 08:39 Dose: 30 mg Documented by: Cosigned by: [email or web address] Sodium Chloride (Sodium Chloride 0.9%) 1,000 mls @ 30 mls/hr IV .Q24H [facility] Last Admin: 06/25/21 04:59 Dose: Not Given Documented by: Admin: 06/24/21 04:07 Dose: 30 mls/hr Documented by: MADISON Metoclopramide HCl (Metoclopramide 10 Mg/2 Ml Vial) 10 mg IV Q6 [facility] Last Admin: 06/25/21 11:46 Dose: 10 mg Documented by: [email or web address] Admin: 06/25/21 05:14 Dose: 10 mg Documented by: Admin: 06/24/21 23:50 Dose: 10 mg Documented by: Admin: 06/24/21 17:12 Dose: 10 mg Documented by: Admin: 06/24/21 12:02 Dose: 10 mg Documented by: MELITON Morphine Sulfate (Morphine 4 Mg/Ml Vial) 4 mg IV Q4HP PRN; Protocol PRN Reason: Per Pain Protocol Last Admin: 06/24/21 19:55 Dose: 4 mg Documented by: Admin: 06/24/21 10:23 Dose: 4 mg Documented by: MELITON Ondansetron HCl (Ondansetron 4 Mg/2 Ml Vial) 4 mg IV Q8 [facility] Last Admin: 06/25/21 05:14 Dose: 4 mg Documented by: Admin: 06/24/21 22:13 Dose: 4 mg Documented by: Admin: 06/24/21 13:36 Dose: 4 mg Documented by: Admin: 06/24/21 05:33 Dose: 4 mg Documented by: MADISON Pantoprazole Sodium (Pantoprazole 40 Mg Vial) 40 mg IV BIDAC [facility] Last Admin: 06/25/21 07:13 Dose: 40 mg Documented by: Admin: 06/24/21 16:27 Dose: 40 mg Documented by: Admin: 06/24/21 07:03 Dose: 40 mg Documented by: MELITON Pantoprazole Sodium (Pantoprazole 40 Mg Vial) 40 mg IV BIDAC [facility] Last Admin: 06/25/21 07:13 Dose: Not Given Documented by: Admin: 06/24/21 15:08 Dose: Not Given Documented by: MELITON Pregabalin (Pregabalin 150 Mg Capsule) 300 mg PO BID [facility] Last Admin: 06/25/21 08:38 Dose: 300 mg Documented by: Cosigned by: ASMITA Admin: 06/24/21 19:55 Dose: 300 mg Documented by: MADISON Prochlorperazine (Prochlorperazine 10 Mg/2 Ml Vial) 10 mg IV Q6HP PRN PRN Reason: Nausea And Vomiting Last Admin: 06/24/21 07:01 Dose: 10 mg Documented by: MELITON Shift Summary 06/25/21 01:58 Shift Summary by Tiffanie Billingsley A/O, up with SBA and FWW to BR. Pt has been incontinent of stool. S/p small bowel study, multiple large watery stools which slowed down during the night. Pt states she wears her c-collar for comfort. Stable on RA. VSS. Follow up abd Xray tomorrow. Tolerating Full Liquid diet. PRN morphine given after Echo done d/t pain of position. Scheduled reglan and zofran. Initialized on 06/25/21 01:58 - END OF NOTE
== END 2021-06-25 14:55 | disposition home or self-care (01) | DRG 390 ==
LOC: ED 21:02 → MEDSUR 06-24 03:56
PROVIDERS: ADMIT Family Medicine Adult Medicine; ATTEND Family Medicine Adult Medicine

== ENCOUNTER 2022-04-07 14:03 | Observation (INO) ==
[2022-04-07 14:29] LABS: POC Calcium, Ionized 1.23 (1.16-1.32); POC Creatinine 1.1 (0.6-1.2); POC Potassium 3.8 (3.3-5.1)
--- NOTE | 2022-04-07 14:50 | Emergency Department Note ---
Neuro HPI General Chief Complaint: Stroke Symptoms Stated Complaint: NUMBNESS Time Seen by Provider: 04/07/22 14:19 Source: patient Mode of arrival: wheelchair Limitations: no limitations History of Present Illness HPI Narrative: 77-year-old female with history of migraines, ankylosing spondylitis, neuropathy, obstructive sleep apnea, narcolepsy, fibromyalgia, history of thyroid cancer status post thyroidectomy, hyperlipidemia presents to the ER with strokelike symptoms that started on [place] night, 2 nights ago. She states that she was typing at her computer and could not hit the keys with her right hand. She also felt confused and had difficulty remembering what she was doing. She also notes increased numbness to the right upper and right lower extremity. She has baseline neuropathy that affects primarily her right side, but she states this is increased. She also notes numbness to the right side of her face, which is new. She spent the last couple of days resting, but decided to come in today because she felt like her cognition was affected. She also notes some balance issues with ambulating at baseline, and states these have been about the same. NIH stroke score is 3 for right upper and right lower extremity ataxia, and mild sensory deficit to the right face right arm, and right lower extremity. Echocardiogram from 06/24/2021 shows normal EF of 60 to 65%, no hemodynamically significant valvular disease, no diastolic dysfunction. Related Data Home Medications Medication Instructions Recorded Confirmed potassium chloride 10 mEq 10 meq PO HS 05/29/17 03/30/22 capsule,extended release topiramate 100 mg tablet (Topamax) 100 mg PO HS 05/29/17 03/30/22 acetaminophen 650 mg 650 mg PO Q8H 11/26/20 03/30/22 tablet,extended release (Tylenol 8 Hour) calcium citrate-vitamin D3 See Rx Instructions .Route .COMPLEX 11/26/20 03/30/22 [Calcium Citrate + D] diclofenac sodium 1 % topical gel See Rx Instructions topical TID 11/26/20 03/30/22 (Voltaren) duloxetine 30 mg capsule,delayed 30 mg PO DAILY 11/26/20 03/30/22 release levothyroxine 112 mcg capsule 112 mcg PO QDAY 11/26/20 03/30/22 (Tirosint) modafinil 200 mg tablet 200 mg PO QAM 11/26/20 03/30/22 simvastatin 20 mg tablet (Zocor) 20 mg PO QHS 11/26/20 03/30/22 amoxicillin 500 mg tablet 2,000 mg PO ONCE PRN predental 11/27/20 03/30/22 baclofen 10 mg tablet 10 mg PO HS 11/27/20 03/30/22 clonazepam 0.5 mg tablet 0.25 mg PO QHS 11/27/20 03/30/22 cyanocobalamin (vitamin B-12) 3,000 mcg IM QMONTH 11/27/20 03/30/22 1,000 mcg/mL injection solution kulwant's leg cramp 3 tab PO HS 11/27/20 03/30/22 [id number] 575 mg PO HS 11/27/20 03/30/22 pregabalin [Lyrica] 300 mg PO BID 11/27/20 03/30/22 calcitriol 0.25 mcg capsule 1 cap PO QDAY 06/24/21 03/30/22 celecoxib 100 mg capsule 200 mg PO BID 06/24/21 03/30/22 folic acid 1 mg tablet 5 mg PO HS 06/24/21 03/30/22 hydrocodone 7.5 mg-acetaminophen 7.5 - 325 tab PO PRN PRN Pain 06/24/21 03/30/22 325 mg tablet methotrexate sodium 2.5 mg tablet 5 tab PO WEEKLY 06/24/21 03/30/22 Previous Rx's Medication Instructions Recorded Ketamine nasal spray 50mg/mL (0.1 See Rx Instructions .Route 11/17/21 mL per spray) .COMPLEX PRN Headache #30 units Allergies Allergy/AdvReac Type Severity Reaction Status Date / Time acetaminophen Allergy Unknown Unknown Verified 04/07/22 16:13 propoxyphene Allergy Unknown Unknown Verified 04/07/22 16:13 [From Darvocet-N] adhesive tape AdvReac Intermediate Unknown Verified 04/07/22 16:13 cephalexin AdvReac Intermediate Unknown Verified 04/07/22 16:13 Sulindac [From Clinoril] AdvReac Intermediate Unknown Verified 04/07/22 16:13 propoxyphene napsylate Allergy Unknown Unknown Uncoded 10/15/21 09:55 tetanus shot Allergy Unknown Unknown Uncoded 10/15/21 09:55 Review of Systems ROS ROS Narrative: Narrative: All systems ED: reviewed and negative except as stated. 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) History of stroke (Chronic) Other low back pain (Chronic) Radiculopathy, lumbar region (Chronic) Myofascial pain (Chronic) Neuropathic pain (Chronic) Occipital neuralgia (Chronic) Radiculopathy, cervical region (Chronic) Trochanteric bursitis of both hips (Chronic) Spondylosis without myelopathy or radiculopathy, cervical region (Chronic) Slurred speech (Chronic) Weakness (Chronic) Diarrhea (Chronic) Nausea & vomiting (Chronic) USP (current) use of opiate analgesic (Chronic) Kidney calculus (Chronic) Vertigo (Chronic) Ganglion of wrist (Chronic) Reactive airway disease (Chronic) Chronic pain (Chronic) MIKI (obstructive sleep apnea) (Chronic) PTSD (post-traumatic stress disorder) (Chronic) Anxiety (Chronic) Impaired cognition (Chronic) H/O immunosuppressive therapy (Chronic) Vitamin B deficiency (Chronic) Adenomatous polyp of colon (Chronic) Tinea cruris (Chronic) Lumbar spinal stenosis (Chronic) Ankylosing spondylitis (Chronic) Bilateral ankle pain (Chronic) Bilateral elbow joint pain (Chronic) Bilateral hand pain (Chronic) Bilateral knee pain (Chronic) Bilateral leg pain (Chronic) Bilateral primary osteoarthritis of knee (Chronic) Central stenosis of spinal canal (Chronic) Cerebral arteritis (Chronic) Chronic neck pain (Chronic) Chronic shoulder pain (Chronic) DDD (degenerative disc disease) (Chronic) Depression (Chronic) Difficulty staying asleep (Chronic) Difficulty swallowing (Chronic) Dry eyes (Chronic) Dry mouth (Chronic) Easy bruising (Chronic) Facet arthropathy (Chronic) Fatigue (Chronic) Fibromyalgia (Chronic) Gastritis (Chronic) GCA (giant cell arteritis) (Chronic) Heart murmur (Chronic) History of compression fracture of spine (Chronic ~11/2017) History of dysmenorrhea (Chronic) Hyperlipidemia (Chronic) Idiopathic progressive neuropathy (Chronic) Impairment of balance (Chronic) Inflammatory polyarthropathy (Chronic) Intervertebral disc disorder with radiculopathy of lumbar region (Chronic) Intervertebral disc protrusion (Chronic) Joint pain (Chronic) Joint stiffness (Chronic) Knee osteoarthritis (Chronic) Left shoulder pain (Chronic) Leg cramps (Chronic) Leg numbness (Chronic) Leg weakness (Chronic) Low back pain (Chronic) Lumbar nerve root impingement (Chronic) Memory loss (Chronic) Migraines (Chronic) Multifactorial functional impairment (Chronic) Muscle spasm (Chronic) Muscle tenderness (Chronic) Musculoskeletal pain (Chronic) Neurologic abnormality (Chronic) Night sweats (Chronic) Numbness and tingling of both feet (Chronic) Numbness in both hands (Chronic) Obesity (Chronic) On computer terminal operator drug therapy (Chronic) Osteoarthritis (Chronic) Paralyzed hemidiaphragm (Chronic) Peripheral neuropathy (Chronic) Sleep apnea (Chronic) Spine pain (Chronic) Thrombocytopenia (Chronic) Thyroid cancer (Chronic ~2017) TMJ pain dysfunction syndrome (Chronic) Vitamin D deficiency (Chronic) History of sleep apnea (Chronic) Multiple sclerosis (Chronic) Partial small bowel obstruction (Chronic) Hx of laparoscopic gastric banding (Chronic ~2004) Undifferentiated inflammatory polyarthritis (Chronic) Encounter for long-term current use of high risk medication (Chronic) Polyarthralgia (Chronic) Myalgia (Chronic) Back pain (Chronic) Medical History Adenomatous polyp of colon Ankylosing spondylitis Anxiety Back pain Bilateral ankle pain Bilateral elbow joint pain Bilateral hand pain Bilateral knee pain Bilateral leg pain Bilateral primary osteoarthritis of knee Central stenosis of spinal canal Cerebral arteritis Chronic neck pain Chronic pain Chronic shoulder pain DDD (degenerative disc disease) Depression Diarrhea Difficulty staying asleep Difficulty swallowing Dry eyes Dry mouth Easy bruising Encounter for long-term current use of high risk medication Facet arthropathy Fatigue Fibromyalgia Ganglion of wrist Gastritis GCA (giant cell arteritis) H/O immunosuppressive therapy Heart murmur History of compression fracture of spine (~11/2017) L2-L3 History of dysmenorrhea History of stroke Hyperlipidemia Idiopathic progressive neuropathy Impaired cognition Impairment of balance Inflammatory polyarthropathy Intervertebral disc disorder with radiculopathy of lumbar region Intervertebral disc protrusion Joint pain Joint stiffness Kidney calculus Knee osteoarthritis Left shoulder pain Leg cramps Leg numbness 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 Low back pain Lumbar nerve root impingement Lumbar spinal stenosis Memory loss Migraines Multifactorial functional impairment Multiple sclerosis Muscle spasm Muscle tenderness Musculoskeletal pain Myalgia Myofascial pain Nausea & vomiting Neurologic abnormality Neuropathic pain Bilateral Lower limb Night sweats Numbness and tingling of both feet Numbness in both hands Obesity Occipital neuralgia On fci drug therapy MIKI (obstructive sleep apnea) Osteoarthritis Other low back pain Paralyzed hemidiaphragm Partial small bowel obstruction Peripheral neuropathy Polyarthralgia Primary osteoarthritis of right knee PTSD (post-traumatic stress disorder) Radiculopathy, cervical region Radiculopathy, lumbar region Reactive airway disease Sleep apnea Sleep disorder Slurred speech Spine pain Spondylosis without myelopathy or radiculopathy, cervical region Thrombocytopenia Thyroid cancer (~2017) Tinea cruris TMJ pain dysfunction syndrome Trochanteric bursitis of both hips Undifferentiated inflammatory polyarthritis Vasculitis on brain biopsy Vertigo Vitamin B deficiency Vitamin D deficiency Weakness Surgical History History of cataract extraction (~2012) History of surgery Synovial cyst Rt 4th toe History of surgery 12/28 RFTC Bilat C3-7 w/sed 01/05/201811/27 MBB #2 Bilat C3-7 w/sed 12/09/1711/27 Trochanteric Bursa Injection, Bilat w/sed 11/29/201711/27 MBB C3-7 Bilat w/sed 11/29/201705/30 MARCELLA #2 w/cath, w/sed 05/18/201705/30 Trochanteric Bursa Injection, left w/sed 05/18/201705/30 Occipital Nerve Block, left w/sed 05/18/201704/29 Occipital Nerve Block - Left w/sed 04/29/1704/29 MARCELLA #1 w/cath, w/sed 04/29/1701/25 SCS Trial w/sed 02/04/201612/26 Trigger Point w/o sed 12/24/201512/26 LESI #2 L2-3 w/o sed 12/24/201511/25 LESI #1 L2-3 w/o sed 12/04/2015 History of toe surgery Right fourth toe amputation Hx of laparoscopic gastric banding (~2004) Family History Mother , Age 79 - Sepsis Osteoarthritis Rheumatoid arthritis Osteoporosis Colon cancer Colitis Heart disease Hypertension Alcohol abuse Father , Age 58 - Gun Shot Wound Osteoarthritis Alcohol abuse Family/Other Malignant tumor of breast Heart failure Stroke Malignant tumor of prostate Osteoporosis Malignant neoplasm of skin Brother Drug abuse Alcohol abuse Social History Smoking Status: Never smoker Alcohol Intake Frequency: holiday/special occasion only Substance Use: does not use Exam Narrative Narrative: General: AOx3, NAD, nontoxic appearing. Pleasant and conversant. HEENT: PERRL, EOMI, normocephalic. Moist mucous membranes. Normal facies and normal dentition. Chest: Symmetric, no pain to palpation Respiratory: Lungs clear to auscultation bilaterally. No respiratory distress. Unlabored breathing. Heart: Regular rate and rhythm, no murmurs/clicks/rubs. Abdomen: Non-tender, Non distended, normal bowel tones. No organomegaly. Extremities: Warm and well perfused. No edema. DP 2+ bilaterally. No venous stasis. Neuro: No focal deficits. Cranial nerves II-XII grossly normal. NIH stroke score is 3, ataxia to the right upper and right lower extremity. She also has decreased sensation to light touch of the right face in all cranial nerve V distributions, right upper extremity, and right lower extremity. Skin: Warm dry, no rashes or lesions, no cyanosis. Psych: Normal mood and affect Heme/Lymph: No abnormal bruising General Limitations: no limitations Course Course Course Narrative: 77-year-old female presents with right-sided stroke symptoms, outside of the [facility] for thrombolytics or thrombectomy Reevaluation(s) Reevaluation #1: Obtain head CT without contrast and CTA of the head and neck Obtain basic lab Reevaluation #2: CT of the head without contrast demonstrates ischemic change or age-related degeneration in the external capsules left greater than right. There is notable atherosclerotic disease of the right vertebral and both internal carotids. Head and neck CTA with mild atherosclerotic disease in both the neck and cave rnous portions of the internal carotids. No evidence of vascular occlusion or hemodynamically significant stenosis in the neck or brain. Consultations Consultation #1: Dr. Bingham, neurology at [place] was consulted. She agrees with admission and MRI. Initiate dual antiplatelet x21 days. Check LDL and decrease high-dose statin if less than 70. She also recommends Holter monitor for 2 weeks. Vital Signs Vital signs: Vital Signs Pulse Rate 75 04/07/22 14:08 Respiratory Rate 18 04/07/22 14:08 Blood Pressure 92/55 04/07/22 14:08 Pulse Oximetry (%) 97 04/07/22 14:08 Oxygen Delivery Method 04/07/22 14:08 Pulse Rate 59 L 04/07/22 18:16 Respiratory Rate 18 04/07/22 14:08 Blood Pressure 106/60 04/07/22 18:16 Pulse Oximetry (%) 93 04/07/22 18:16 Oxygen Delivery Method 04/07/22 18:16 MDM MDM Narrative Medical decision making narrative: Possible stroke Patient is being admitted for stroke work-up. I have initiated dual antiplatelet therapy. Permissive hypertension. I have discussed the patient with the hospitalist and he is excepted her for admission. Lab Data Result diagrams: 04/07/22 14:43 Labs: Lab Results 04/07/22 04/07/22 Range/Units 14:21 14:43 WBC 6.4 (4.5-11.0) K/mcL RBC 3.79 (3.59-5.38) M/mcL Hgb 12.3 (11.2-15.7) g/dL Hct 38.2 (34.1-44.9) % POC Hct 39.0 (36-48) MCV 100.8 H (80.0-100.0) fL MCH 32.5 (26.0-34.0) pg MCHC 32.2 (31.0-36.0) g/dL RDW 15.0 H (11.5-14.5) % Plt Count 103 L (140-440) K/mcL MPV 13.6 H (8.8-12.5) fL Immature Gran % (Auto) 0.3 (0.0-0.5) % Neut % (Auto) 63.2 (38.0-78.0) % Lymph % (Auto) 18.9 (15.5-49.0) % [place] % (Auto) 11.0 (1.0-12.0) % Eos % (Auto) 6.3 (0.0-7.0) % Baso % (Auto) 0.3 (0.0-2.0) % Lymph # (Auto) 1.20 L (1.50-4.80) K/mcL [place] # (Auto) 0.70 (0.10-0.90) K/mcL Eos # (Auto) 0.40 (0.00-0.70) K/mcL Baso # (Auto) 0.02 (0.00-0.30) K/mcL Immature Gran # 0.02 (0.00-0.05) K/mcl Absolute Neutrophils 4.02 (1.80-8.00) K/mcL POC Sodium 145 (133-145) POC Potassium 3.8 (3.3-5.1) POC Chloride 109 H (96-108) POC Total CO2 26.0 (22-30) POC BUN 23 H (6-20) POC Creatinine 1.1 (0.6-1.2) POC Glucose 87 (70-105) POC WB Ioniz Calcium 1.23 (1.16-1.32) Discharge Plan Patient/Caregiver Discharge Instructions Pt seen by GREENHOUSE ASSISTANT/PA only: Yes Clinical Impression: Stroke Patient Disposition: Xfer As Inpt ([facility]) Follow up with: Savana Downey MD [Primary Care Provider] - Prescriptions: No Action Ketamine nasal spray 50mg/mL (0.1 mL per spray) See Rx Instructions .ROUTE .COMPLEX PRN (Reason: Headache) Qty: 30 2RF Rx Instructions: 2 sprays each nostril Q4-6 hours PRN severe headache calcium citrate-vitamin D3 [Calcium Citrate + D] See Rx Instructions .ROUTE .COMPLEX Rx Instructions: ca 630mg/D 500IU simvastatin [Zocor] 20 mg tablet 20 mg PO QHS duloxetine 30 mg capsule,delayed release(DR/EC) 30 mg PO DAILY modafinil 200 mg tablet 200 mg PO QAM levothyroxine [Tirosint] 112 mcg capsule 112 mcg PO QDAY acetaminophen [Tylenol 8 Hour] 650 mg tablet extended release 650 mg PO Q8H cyanocobalamin (vitamin B-12) 1,000 mcg/mL solution 3,000 mcg IM QMONTH pregabalin [Lyrica] 300 mg PO BID Rx Instructions: 300 mg potassium chloride 10 mEq capsule, extended release 10 meq PO HS topiramate [Topamax] 100 mg tablet 100 mg PO HS diclofenac sodium [Voltaren] 1 % gel See Rx Instructions TOPICAL TID Label Comments: 400iu TOPICAL QID Rx Instructions: 400iu TOPICAL Tid topical three times daily baclofen 10 mg tablet 10 mg PO HS clonazepam 0.5 mg tablet 0.25 mg PO QHS amoxicillin 500 mg tablet 2,000 mg PO ONCE PRN (Reason: predental) kulwant's leg cramp 3 tab PO HS Rx Instructions: 3 nightly [id number] 575 mg PO HS calcitriol 0.25 mcg capsule 1 cap PO QDAY celecoxib 100 mg capsule 200 mg PO BID hydrocodone-acetaminophen 7.5-325 mg tablet 7.5 - 325 tab PO PRN PRN (Reason: Pain) Label Comments: [NO ORIGINAL SIG] methotrexate sodium 2.5 mg tablet 5 tab PO WEEKLY Rx Instructions: wednesday night folic acid 1 mg Tablet 5 mg PO HS
--- NOTE | 2022-04-07 14:59 | Cat Scan Report ---
History: Numbness, right-sided ataxia beginning two days ago TECHNIQUE: The brain was imaged without contrast in axial plane at 2.5 mm intervals. Sagittal and coronal reformats were created. The radiation exposure was limited using dose reduction technology. FINDINGS: There is an ill-defined low attenuation lesion in the left external capsule into the sylvian fissure. Measures roughly 9 x 11 mm in size. This has enlarged since the prior brain MRI done on 05/06/21 and may be due to ischemic change or degeneration. A more subtle ill-defined zone of decreased attenuation is seen in the right external capsule. There is no evidence of a mass or hemorrhage. No cortical infarct is present. The ventricles are normal in size. Mild atrophy is present, most apparent in the left frontal lobe. The cerebellum and brainstem are normal. There is a focal dense calcification in the right vertebral artery at the foramen magnum. This may be causing vertebral artery stenosis. There is a small plaque in the midportion of the basilar artery. Calcified plaques are also present in the cavernous portions of both internal carotids. No abnormality seen in the middle or inner ear structures. The mastoids are normally aerated. IMPRESSION: Ischemic change or age-related degeneration in the external capsules, left greater than right. Atherosclerotic disease of the right vertebral and both internal carotids Mamie Rodas was called with the report Interpreted and Authenticated by: Shawn Goodman 04/07/22
--- NOTE | 2022-04-07 15:37 | Cat Scan Report ---
History: Ataxia, peripheral numbness TECHNIQUE: Following injection of intravenous nonionic contrast the patient was imaged during the arterial phase from the level of the root of the aorta to the top of the head. Sagittal, coronal and MIPS images were created of the head and neck. The radiation exposure was limited using dose reduction technology. FINDINGS: The aorta and great vessels arising from the aorta are normal in caliber. There are scattered plaques along the wall of the distal arch and at the origin of the left subclavian artery. These are not causing stenosis. The proximal portions of both common carotids are moderately tortuous, right greater than left. The vessels are normal in caliber. Small amount of eccentric plaque is seen in the carotid bifurcations bilaterally. There is no stenosis thrombosis or dissection of the carotid bifurcations. The internal and external carotids are normal in caliber Small eccentric plaque is also seen at the origin left vertebral artery. This is not causing stenosis. The right vertebral artery is normal. The intracranial portions of both internal carotids are normal. There are few small eccentric plaques in the cavernous portions of both internal carotids. These are not causing stenosis. The anterior and middle cerebral arteries are normal in caliber. The right vertebral artery bifurcates at the level of the foramen magnum. One of the branches provides blood flow to the posterior inferior cerebellar. The two vessels join to the other before joining with left vertebral to form the basilar artery. On the preceding unenhanced head CT there appear to be a calcified plaque in the vertebral at this level. The calcification is not reproducible on this exam and may been an artifact. The left vertebral artery is normal. The basilar artery and posterior fossa circulation are normal. The anterior and both posterior communicating arteries are patent. There is no intracranial vascular occlusion or stenosis. No aneurysm or vascular malformation are present. There is no enhancing lesion. Moderate degenerative disc disease and arthritis are present at multiple levels in the neck. There is mild spinal canal stenosis at C3. The degenerative changes and neck have progressed since the prior MRI done on 10/10/13. IMPRESSION: Mild atherosclerotic disease in both the neck and cavernous portions of the internal carotids. No evidence of vascular occlusion or hemodynamically significant stenosis in the neck or brain Mamie Rodas was called with the report Interpreted and Authenticated by: Shawn Goodman 04/07/22
[2022-04-07] MEDS ORDERED: ASPIRIN 81 MG TAB.CHEW CHEWED ONE (15:41)
[2022-04-07 15:54] LABS: Basophils # (Auto) 0.02 K/mcL (0.00-0.30); Basophils % (Auto) 0.3 % (0.0-2.0); Eosinophils % (Auto) 6.3 % (0.0-7.0); Hematocrit 38.2 % (34.1-44.9); Hemoglobin 12.3 g/dL (11.2-15.7); Lymphocytes % (Auto) 18.9 % (15.5-49.0); Mean Cell Volume 100.8 fL (80.0-100.0); Mean Corpuscular HGB Conc 32.2 g/dL (31.0-36.0); Mean Platelet Volume 13.6 fL (8.8-12.5); Neutrophils % (Auto) 63.2 % (38.0-78.0); Platelet Count 103 K/mcL (140-440); RBC 3.79 M/mcL (3.59-5.38); WBC 6.4 K/mcL (4.5-11.0)
[2022-04-07] MEDS ORDERED: CLOPIDOGREL 75 MG TABLET PO ONE ×3 (15:59→19:15)
--- NOTE | 2022-04-07 19:22 | Internal Med History&Physical ---
HPI History of Present Illness Patient information: Note initiated : 04/07/22 at 7:19 pm Service Date, if different from initiated Date: [] Patient: Tammy Escalante 77 y/o F admitted on for NUMBNESS. Chief Complaint: [] Chief complaint: lack of coordination History of present illness: Ms. Escalante is a 77 year old F who presents to the ER for evaluation of poor coordination. Pt reports that for the last 2 days she has noticed poor coordination with both hands, right > left, unable to text using tim, poor balance, right sided facial numbness, and weakness and numbness on the right hand. Her symptoms ahve waxed and waned, but today given their recurrence and peristence she came to the ER for further eval Pt is on multiple medications, for her chr pain, but notes no changes done recently Patient on arrival to the ER was hemodynamically stable, no oxygen needs, lab work unremarkable, pt head CT shows ischemic changes in greater capsule left > right, mild a therosclerotic changes on the CTA. Pts case was d/w neurology who advised further workup with MRI Patient is being admitted to the hospital for further management. Review of Systems Review of systems: CONSTITUTIONAL: No weight loss, fever, chills, weakness or fatigue. HEENT: Eyes: No visual loss, blurred vision, double vision or yellow sclerae. Ears, Nose, Throat: No hearing loss, sneezing, congestion, runny nose or sore throat. SKIN: No rash or itching. CARDIOVASCULAR: No chest pain, chest pressure or chest discomfort. No palpitations or edema. RESPIRATORY: No shortness of breath, cough or sputum. GASTROINTESTINAL: No nausea, vomiting or diarrhea or constipation. No abdominal pain or blood in stools No Sylwia. GENITOURINARY: Denies Burning on urination. Blood in urine, or foul smelling urine NEUROLOGICAL: No headache, dizziness, syncope, ,. noted nubmess in right fac,e right hand, associated with weakness and lack of coordination MUSCULOSKELETAL: chr pains noted. HEMATOLOGIC: No bleeding or bruising. No enlarged nodes PSYCHIATRIC: No depression or anxiety. ENDOCRINOLOGIC: No reports of sweating, cold or heat intolerance. No polyuria or polydipsia. ALLERGIES: No hives, eczema or rhinitis. Skin: No rash, no jaundice, cyanosis or pallor. 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) History of stroke (Chronic) Other low back pain (Chronic) Radiculopathy, lumbar region (Chronic) Myofascial pain (Chronic) Neuropathic pain (Chronic) Occipital neuralgia (Chronic) Radiculopathy, cervical region (Chronic) Trochanteric bursitis of both hips (Chronic) Spondylosis without myelopathy or radiculopathy, cervical region (Chronic) Slurred speech (Chronic) Weakness (Chronic) Diarrhea (Chronic) Nausea & vomiting (Chronic) MCFP (current) use of opiate analgesic (Chronic) Kidney calculus (Chronic) Vertigo (Chronic) Ganglion of wrist (Chronic) Reactive airway disease (Chronic) Chronic pain (Chronic) MIKI (obstructive sleep apnea) (Chronic) PTSD (post-traumatic stress disorder) (Chronic) Anxiety (Chronic) Impaired cognition (Chronic) H/O immunosuppressive therapy (Chronic) Vitamin B deficiency (Chronic) Adenomatous polyp of colon (Chronic) Tinea cruris (Chronic) Lumbar spinal stenosis (Chronic) Ankylosing spondylitis (Chronic) Bilateral ankle pain (Chronic) Bilateral elbow joint pain (Chronic) Bilateral hand pain (Chronic) Bilateral knee pain (Chronic) Bilateral leg pain (Chronic) Bilateral primary osteoarthritis of knee (Chronic) Central stenosis of spinal canal (Chronic) Cerebral arteritis (Chronic) Chronic neck pain (Chronic) Chronic shoulder pain (Chronic) DDD (degenerative disc disease) (Chronic) Depression (Chronic) Difficulty staying asleep (Chronic) Difficulty swallowing (Chronic) Dry eyes (Chronic) Dry mouth (Chronic) Easy bruising (Chronic) Facet arthropathy (Chronic) Fatigue (Chronic) Fibromyalgia (Chronic) Gastritis (Chronic) GCA (giant cell arteritis) (Chronic) Heart murmur (Chronic) History of compression fracture of spine (Chronic ~11/2017) History of dysmenorrhea (Chronic) Hyperlipidemia (Chronic) Idiopathic progressive neuropathy (Chronic) Impairment of balance (Chronic) Inflammatory polyarthropathy (Chronic) Intervertebral disc disorder with radiculopathy of lumbar region (Chronic) Intervertebral disc protrusion (Chronic) Joint pain (Chronic) Joint stiffness (Chronic) Knee osteoarthritis (Chronic) Left shoulder pain (Chronic) Leg cramps (Chronic) Leg numbness (Chronic) Leg weakness (Chronic) Low back pain (Chronic) Lumbar nerve root impingement (Chronic) Memory loss (Chronic) Migraines (Chronic) Multifactorial functional impairment (Chronic) Muscle spasm (Chronic) Muscle tenderness (Chronic) Musculoskeletal pain (Chronic) Neurologic abnormality (Chronic) Night sweats (Chronic) Numbness and tingling of both feet (Chronic) Numbness in both hands (Chronic) Obesity (Chronic) On correction drug therapy (Chronic) Osteoarthritis (Chronic) Paralyzed hemidiaphragm (Chronic) Peripheral neuropathy (Chronic) Sleep apnea (Chronic) Spine pain (Chronic) Thrombocytopenia (Chronic) Thyroid cancer (Chronic ~2017) TMJ pain dysfunction syndrome (Chronic) Vitamin D deficiency (Chronic) History of sleep apnea (Chronic) Multiple sclerosis (Chronic) Partial small bowel obstruction (Chronic) Hx of laparoscopic gastric banding (Chronic ~2004) Undifferentiated inflammatory polyarthritis (Chronic) Encounter for long-term current use of high risk medication (Chronic) Polyarthralgia (Chronic) Myalgia (Chronic) Back pain (Chronic) Medical History Adenomatous polyp of colon Ankylosing spondylitis Anxiety Back pain Bilateral ankle pain Bilateral elbow joint pain Bilateral hand pain Bilateral knee pain Bilateral leg pain Bilateral primary osteoarthritis of knee Central stenosis of spinal canal Cerebral arteritis Chronic neck pain Chronic pain Chronic shoulder pain DDD (degenerative disc disease) Depression Diarrhea Difficulty staying asleep Difficulty swallowing Dry eyes Dry mouth Easy bruising Encounter for long-term current use of high risk medication Facet arthropathy Fatigue Fibromyalgia Ganglion of wrist Gastritis GCA (giant cell arteritis) H/O immunosuppressive therapy Heart murmur History of compression fracture of spine (~11/2017) L2-L3 History of dysmenorrhea History of stroke Hyperlipidemia Idiopathic progressive neuropathy Impaired cognition Impairment of balance Inflammatory polyarthropathy Intervertebral disc disorder with radiculopathy of lumbar region Intervertebral disc protrusion Joint pain Joint stiffness Kidney calculus Knee osteoarthritis Left shoulder pain Leg cramps Leg numbness Leg weakness MCFP (current) use of opiate analgesic Low back pain Lumbar nerve root impingement Lumbar spinal stenosis Memory loss Migraines Multifactorial functional impairment Multiple sclerosis Muscle spasm Muscle tenderness Musculoskeletal pain Myalgia Myofascial pain Nausea & vomiting Neurologic abnormality Neuropathic pain Bilateral Lower limb Night sweats Numbness and tingling of both feet Numbness in both hands Obesity Occipital neuralgia On correction drug therapy MIKI (obstructive sleep apnea) Osteoarthritis Other low back pain Paralyzed hemidiaphragm Partial small bowel obstruction Peripheral neuropathy Polyarthralgia Primary osteoarthritis of right knee PTSD (post-traumatic stress disorder) Radiculopathy, cervical region Radiculopathy, lumbar region Reactive airway disease Sleep apnea Sleep disorder Slurred speech Spine pain Spondylosis without myelopathy or radiculopathy, cervical region Thrombocytopenia Thyroid cancer (~2017) Tinea cruris TMJ pain dysfunction syndrome Trochanteric bursitis of both hips Undifferentiated inflammatory polyarthritis Vasculitis on brain biopsy Vertigo Vitamin B deficiency Vitamin D deficiency Weakness Surgical History History of cataract extraction (~2012) History of surgery Synovial cyst Rt 4th toe History of surgery 12/28 RFTC Bilat C3-7 w/sed 01/05/201811/27 MBB #2 Bilat C3-7 w/sed 12/09/1711/27 Trochanteric Bursa Injection, Bilat w/sed 11/29/201711/27 MBB C3-7 Bilat w/sed 11/29/201705/30 MARCELLA #2 w/cath, w/sed 05/18/201705/30 Trochanteric Bursa Injection, left w/sed 05/18/201705/30 Occipital Nerve Block, left w/sed 05/18/201704/29 Occipital Nerve Block - Left w/sed 04/29/1704/29 MARCELLA #1 w/cath, w/sed 04/29/1701/25 SCS Trial w/sed 02/04/201612/26 Trigger Point w/o sed 12/24/201512/26 LESI #2 L2-3 w/o sed 12/24/201511/25 LESI #1 L2-3 w/o sed 12/04/2015 History of toe surgery Right fourth toe amputation Hx of laparoscopic gastric banding (~2004) Family History Mother , Age 79 - Sepsis Osteoarthritis Rheumatoid arthritis Osteoporosis Colon cancer Colitis Heart disease Hypertension Alcohol abuse Father , Age 58 - Gun Shot Wound Osteoarthritis Alcohol abuse Family/Other Malignant tumor of breast Heart failure Stroke Malignant tumor of prostate Osteoporosis Malignant neoplasm of skin Brother Drug abuse Alcohol abuse Social History (Updated 07/31/21 @ 07:56 by Chela Olsen) marital status: education level: college occupational status: 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COMPLEX 11/26/20 03/30/22 History [Calcium Citrate + D] diclofenac sodium 1 % topical gel See Rx Instructions topical TID 11/26/20 1 05/31/21 History (Voltaren) duloxetine 30 mg capsule,delayed 30 mg PO DAILY 11/26/20 03/30/22 History release levothyroxine 112 mcg capsule 112 mcg PO QDAY 11/26/20 03/30/22 History (Tirosint) modafinil 200 mg tablet 200 mg PO QAM 11/26/20 03/30/22 History simvastatin 20 mg tablet (Zocor) 20 mg PO QHS 11/26/20 03/30/22 History amoxicillin 500 mg tablet 2,000 mg PO ONCE PRN predental 11/27/20 04/07/22 History baclofen 10 mg tablet 10 mg PO HS 11/27/20 04/07/22 History clonazepam 0.5 mg tablet 0.25 mg PO QHS 11/27/20 03/30/22 History cyanocobalamin (vitamin B-12) 3,000 mcg IM QMONTH 11/27/20 03/30/22 History 1,000 mcg/mL injection solution kulwant's leg cramp 3 tab PO HS 11/27/20 03/30/22 History [id number] 575 mg PO HS 11/27/20 03/30/22 History pregabalin [Lyrica] 300 mg PO BID 11/27/20 03/30/22 History calcitriol 0.25 mcg capsule 1 cap PO QDAY 06/24/21 03/30/22 History celecoxib 100 mg capsule 200 mg PO BID 06/24/21 03/30/22 History folic acid 1 mg tablet 5 mg PO HS 06/24/21 03/30/22 History hydrocodone 7.5 mg-acetaminophen 7.5 - 325 tab PO PRN PRN Pain 06/24/21 03/30/22 History 325 mg tablet methotrexate sodium 2.5 mg tablet 5 tab PO WEEKLY 06/24/21 03/30/22 History Ketamine nasal spray 50mg/mL (0.1 See Rx Instructions .Route 11/17/21 03/30/22 Rx mL per spray) .COMPLEX PRN Headache #30 units naproxen sodium 220 mg tablet 220 mg PO ONCE 04/07/22 04/07/22 History (Aleve) Allergies Allergy/AdvReac Type Severity Reaction Status Date / Time acetaminophen Allergy Unknown Unknown Verified 04/07/22 16:13 adhesive tape Allergy Unknown Unknown Verified 04/07/22 19:13 cephalexin Allergy Unknown Unknown Verified 04/07/22 19:13 propoxyphene Allergy Unknown Unknown Verified 04/07/22 16:13 [From Darvocet-N] Sulindac [From Clinoril] Allergy Unknown Unknown Verified 04/07/22 19:13 Tetanus Vaccines and Toxoid Allergy Unknown Unknown Verified 04/07/22 19:13 EXAM Constitutional Vitals: Pulse Resp BP Pulse Ox O2 Del Method 59 L 18 105/59 93 04/07/22 18:16 04/07/22 14:08 04/07/22 18:46 04/07/22 18:16 04/07/22 18:16 Exam: GENERAL: The patient is a well-developed, well-nourished in no apparent distress. Is alert and oriented x3. VITAL SIGNS: Reviewed and as noted elsewhere. HEENT: Head is normocephalic and atraumatic. Extraocular muscles are intact. Pupils are equal, round, and reactive to light. Nares appeared normal. Mouth appears any without lesions. Mucous membranes are moist. NECK: Normal to inspection, Supple, No lymphadenopathy or thyromegaly. LUNGS: Air entry equal on both sides, no wheezing, crackles or rhonchi noted. No accessory muscles of respiration HEART: Regular rate and rhythm normal, S1 and S2 heard, no Gallop, S3 or Rub Noted, No Gross murmur heard. ABDOMEN: Soft, nontender, and nondistended. Positive bowel sounds. No hepatosplenomegaly was noted. EXTREMITIES: No cyanosis, clubbing, rash, lesions or edema. NEUROLOGIC: Cranial nerves II through XII are grossly intact. RUE and LUE 5/5, LLE is 4/5, RLE 5/5, pt has poor finger to finger coordination on the right side, poor heel to schin on right side. Sensations are reportedly intact PSYCHIATRIC: Normal affect, Normal Mood. Appropriate Behavior. SKIN: No ulceration or wounds noted, No jaundice, No rash noted. DATA Data Completed and Pending Labs: Labs from last 24 hours 04/07/22 04/07/22 14:43 14:21 WBC 6.4 RBC 3.79 Hgb 12.3 Hct 38.2 POC Hct 39.0 MCV 100.8 H MCH 32.5 MCHC 32.2 RDW 15.0 H Plt Count 103 L MPV 13.6 H Immature Gran % (Auto) 0.3 Neut % (Auto) 63.2 Lymph % (Auto) 18.9 Daniels % (Auto) 11.0 Eos % (Auto) 6.3 Baso % (Auto) 0.3 Lymph # (Auto) 1.20 L Daniels # (Auto) 0.70 Eos # (Auto) 0.40 Baso # (Auto) 0.02 Immature Gran # 0.02 Absolute Neutrophils 4.02 POC Sodium 145 POC Potassium 3.8 POC Chloride 109 H POC Total CO2 26.0 POC BUN 23 H POC Creatinine 1.1 POC Glucose 87 POC WB Ioniz Calcium 1.23 A/P Narrative A/P Narrative: A/P Acute CVA -likely cerebellar stroke -OT/PT /Speech eval -load with plavix, start on asa, and plavix for now, plavix likely for 21 days -incrase dose of simvastatin from 20 to 40 -MR head -Echo with bubble -Neurochecks q4hrs HTN -allow permissive HTN, HLD -continue statin, incrase dose Chronic Pain -resume home pain meds Time Spent With Patient Time: Total time spent is greater than 50% in coordination of care (as documented) at patient's floor/unit and/or counseling patient: QUALITY Stroke Symptom Onset Unknown: No
[2022-04-07] MEDS ORDERED: oxyCODONE HCL 5 MG TABLET PO PRN (21:08)
[2022-04-07] MEDS ORDERED: SIMVASTATIN 20 MG TABLET PO SCH (21:08)
[2022-04-07] MEDS ORDERED: FOLIC ACID 1 MG TABLET PO SCH (21:08)
[2022-04-07] MEDS ORDERED: TOPIRAMATE 100 MG TABLET PO SCH (21:08)
[2022-04-07] MEDS ORDERED: HYDROmorphone 0.5 MG/0.5 ML SYRINGE IV PRN (21:08)
[2022-04-07] MEDS ORDERED: BACLOFEN 10 MG TABLET PO SCH (21:08)
[2022-04-07] MEDS ORDERED: ALBUTEROL SULFATE 2.5 MG/3 ML NEBULIZER NEB PRN (21:08)
[2022-04-07] MEDS ORDERED: ONDANSETRON 4 MG/2 ML VIAL IV PRN (21:08)
[2022-04-07] MEDS ORDERED: clonazePAM 0.5 MG TABLET PO SCH (21:08)
[2022-04-07] MEDS ORDERED: NALOXONE HCL 0.4 MG/ML VIAL IV PRN (21:08)
[2022-04-07] MEDS ORDERED: traZODone HCL 50 MG TABLET PO PRN (21:08)
[2022-04-07] MEDS ORDERED: SENNOSIDES 1 TABLET PO SCH (21:08)
[2022-04-07] MEDS ORDERED: MAGNESIUM HYDROXIDE 30 ML ORAL.SUSP PO PRN (21:08)
[2022-04-07] MEDS: DEXTROSE 5%-LR 1,000 ML IV SCH (21:57)
[2022-04-07] MEDS: PREGABALIN 150 MG CAPSULE PO SCH (22:15)
[2022-04-07] MEDS: HEPARIN 5,000 UNIT/ML VIAL SQ SCH (22:15)
[2022-04-07] MEDS: DOCUSATE SODIUM 100 MG CAPSULE PO SCH (22:15)
[2022-04-07] MEDS: 0.9 % SODIUM CHLORIDE 10 ML SYRINGE IV SCH (22:16)
[2022-04-08 03:01] LABS: Amphetamine Screen,Urine None detected; Barbiturate Screen,Urine None detected; Benzodiazepines Screen,Urine None detected; Cannabinoid Screen,Urine None detected; Cocaine Screen,Urine None detected; Opiate Screen,Urine None detected; Oxycodone, Urine Screen None detected; Phencyclidine Screen,Urine None detected
[2022-04-08] MEDS: 0.9 % SODIUM CHLORIDE 10 ML SYRINGE IV SCH (05:33)
--- NOTE | 2022-04-08 07:46 | Magnetic Resonance Report ---
History: Stroke symptoms with new onset ataxia TECHNIQUE: Brain was imaged using stroke protocol. FINDINGS: There is a 4 mm cerebral cavernous malformation anteriorly and inferiorly along the right side of the rodney. There is no associated hemorrhage. This has not changed since prior MRI done on 05/06/21. No acute infarct is present. There is no hemorrhage or mass. The FLAIR sequences reveal the presence of multiple small scattered white matter lesions in the periphery of the centrum semiovale, in the frontal and parietal lobes. Largest is a subcortical white matter lesion which measures 4 x 7 mm and is located posteriorly and laterally in the left frontal lobe. These white matter lesions are a chronic stable finding with no significant change. There is very little atrophy. The ventricles are normal in size. No abnormal extra-axial fluid collection is present. The cerebellum and basal ganglia are normal. There is no evidence of inflammation in the mastoids. No gross abnormality is seen in the middle or inner ear structures. IMPRESSION: No acute abnormality and no change since 05/06/21. 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
[2022-04-08] MEDS ORDERED: CALCITRIOL 0.25 MCG CAPSULE PO SCH (09:00)
[2022-04-08] MEDS ORDERED: ASPIRIN 81 MG TAB.CHEW CHEWED SCH (09:00)
[2022-04-08] MEDS ORDERED: DULoxetine 30 MG CAPSULE PO SCH (09:00)
[2022-04-08] MEDS ORDERED: MODAFINIL 200 MG TABLET PO SCH (09:00)
[2022-04-08] MEDS ORDERED: CLOPIDOGREL 75 MG TABLET PO SCH (09:00)
[2022-04-08] MEDS: PREGABALIN 150 MG CAPSULE PO SCH (09:20)
[2022-04-08] MEDS: HEPARIN 5,000 UNIT/ML VIAL SQ SCH (09:20)
[2022-04-08] MEDS: DOCUSATE SODIUM 100 MG CAPSULE PO SCH (09:21)
[2022-04-08] MEDS: DEXTROSE 5%-LR 1,000 ML IV SCH (10:53)
--- NOTE | 2022-04-08 13:28 | Discharge Summary ---
Discharge Provider Provider IMPORTANT FOLLOW-UP INFORMATION FOR PCP: Patient information: Note initiated : 04/08/22 at 1:22 pm Service Date, if different from initiated Date: [] Patient: Tammy Escalante 77 y/o F admitted on 04/07/22 for NUMBNESS. Chief Complaint: [] Date of admission: 04/07/22 20:52 Discharge date: 04/08/22 Primary care physician: Savana Downey Consults: 04/07/22 Consult to Physician [CONS] Stat Comment: Consulting Provider: Tyoin Dior Reason For Exam: Physician to Consult COURSE Hospital Course Hospital course: Ms. Escalante is a 77 year old F who presents to the ER for evaluation of poor coordination. Pt reports that for the last 2 days she has noticed poor coordination with both hands, right > left, unable to text using tim, poor balance, right sided facial numbness, and weakness and numbness on the right hand. Her symptoms have waxed and waned, but today given their recurrence and persistence she came to the ER for further eval Pt is on multiple medications, for her chr pain, but notes no changes done recently, Patient on arrival to the ER was hemodynamically stable, no oxygen needs, lab work unremarkable, pt head CT shows ischemic changes in greater capsule left > right, mild a therosclerotic changes on the CTA. Pts case was d/w neurology who advised further workup with MRI Patient is being admitted to the hospital for further management. Ataxia/ Weakness/Numbness -CTA shows mild atherosclerosis, MRi negative for stroke, echo normal lvef, no shunt noted -Pt condition improved the next day, OT/PT eval done, pt appears at baseline -PT advised walker, which was prescribed -I suspect pt symtoms are more related to her C spine rather than CVA, but given atherosclerosis, I am unable to r/o small TIA, hence will keep the patient on low dose ASA at this time -I advise PCP to consider anoupatient MRI of the C spine given her history of arthritis in case her clinical condition worsens or she has any new neurological deficits. Besides addition of ASA 81mg, I have made no changes to her chronic home medication list. Discharge diagnosis: Ataxia Numbness Time Spent with Patient Time attestation: Total time spent providing and/or coordinating discharge services: Time spent: Less than 30 minutes EXAM Constitutional Vitals: Temp Pulse Resp BP Pulse Ox O2 Del Method O2 Flow Rate 97.7 F 64 23 H 127/77 98 0 04/08/22 12:04/08/22 10:32 04/08/22 12:04/08/22 12:04/08/22 10:32 04/08/22 12:04/08/22 04:00 Exam: Constitutional; Afebrile, cooperative, alert, not in distress. Eyes- No icterus, , No periorbital swelling Ears- Ext ear normal, hearing normal to conversation. Neck- Midline trachea, supple Respiratory system: Air Entry equal on both sides, No crackles or wheezing, no rhonchi. CVS- Rate rhythm regular, S1,S2 heard, no gallop, no rub. Abdomen- Soft nontender abdomen, no organomegaly, no tenderness, no guarding or rigidity, [employer]- AOOx3, moving all extremities, no gross focal deficit noted. Pt had normal finger to finger test today in both arms Discharge Data Data Completed and Pending Labs on day of discharge: Labs from last 24 hours 04/07/22 04/07/22 04/07/22 14:43 14:21 01:28 WBC 6.4 RBC 3.79 Hgb 12.3 Hct 38.2 POC Hct 39.0 MCV 100.8 H MCH 32.5 MCHC 32.2 RDW 15.0 H Plt Count 103 L MPV 13.6 H Immature Gran % (Auto) 0.3 Neut % (Auto) 63.2 Lymph % (Auto) 18.9 Metcalfe % (Auto) 11.0 Eos % (Auto) 6.3 Baso % (Auto) 0.3 Lymph # (Auto) 1.20 L Metcalfe # (Auto) 0.70 Eos # (Auto) 0.40 Baso # (Auto) 0.02 Immature Gran # 0.02 Absolute Neutrophils 4.02 POC Sodium 145 POC Potassium 3.8 POC Chloride 109 H POC Total CO2 26.0 POC BUN 23 H POC Creatinine 1.1 POC Glucose 87 POC WB Ioniz Calcium 1.23 Urine Opiates Screen None detected Ur Opiates Confirm TNP Ur Oxycodone Screen None detected U Oxycod/Oxymor Confirm TNP Urine Methadone Screen None detected Ur Methadone Confirm TNP Ur Barbiturates Screen None detected Ur Barbiturate Confirm TNP Ur Phencyclidine Scrn None detected Urine PCP Confirm TNP Ur Amphetamines Screen None detected U Amphetamines Confirm TNP U Benzodiazepines Scrn None detected Ur Benzodiazepine, Qnt TNP Urine Cocaine Screen None detected Urine Cocaine Confirm TNP U Cannabinoids Confirm TNP U Marijuana (THC) Screen None detected Discharge Plan Patient/Caregiver Discharge Instructions Activity: increase activity as tolerated and resume usual activities as tolerated Diet: Cardiac Prescriptions: New Aspirin 81 mg PO DAILY Qty: 100 0RF Rx Instructions: Take with food Continued Ketamine nasal spray 50mg/mL (0.1 mL per spray) See Rx Instructions .ROUTE .COMPLEX PRN (Reason: Headache) Qty: 30 2RF Rx Instructions: 2 sprays each nostril Q4-6 hours PRN severe headache calcium citrate-vitamin D3 [Calcium Citrate + D] See Rx Instructions .ROUTE .COMPLEX Rx Instructions: ca 630mg/D 500IU, takes 7am, 1500, 2300 simvastatin [Zocor] 20 mg tablet 20 mg PO QHS duloxetine 30 mg capsule,delayed release(DR/EC) 30 mg PO DAILY modafinil 200 mg tablet 200 mg PO QAM levothyroxine [Tirosint] 112 mcg capsule 112 mcg PO QDAY acetaminophen [Tylenol 8 Hour] 650 mg tablet extended release 650 mg PO Q8H cyanocobalamin (vitamin B-12) 1,000 mcg/mL solution 3,000 mcg IM QMONTH pregabalin [Lyrica] 300 mg PO BID Rx Instructions: 300 mg potassium chloride 10 mEq capsule, extended release 10 meq PO HS topiramate [Topamax] 100 mg tablet 100 mg PO HS diclofenac sodium [Voltaren] 1 % gel See Rx Instructions TOPICAL TID Label Comments: 400iu TOPICAL QID Rx Instructions: 400iu TOPICAL Tid topical three times daily baclofen 10 mg tablet 10 mg PO HS clonazepam 0.5 mg tablet 0.25 mg PO QHS amoxicillin 500 mg tablet 2,000 mg PO ONCE PRN (Reason: predental) kulwant's leg cramp 3 tab PO HS Rx Instructions: 3 nightly [id number] 575 mg PO HS calcitriol 0.25 mcg capsule 1 cap PO QDAY celecoxib 100 mg capsule 100 mg PO BID hydrocodone-acetaminophen 7.5-325 mg tablet 1 - 2 tab PO PRN PRN (Reason: Pain) Label Comments: [NO ORIGINAL SIG] methotrexate sodium 2.5 mg tablet 5 tab PO WEEKLY Rx Instructions: wednesday night folic acid 1 mg Tablet 5 mg PO HS naproxen sodium [Aleve] 220 mg Tablet 220 mg PO ONCE Other Ambulatory Orders: Walker (ONCE) Location: None Selected Ordered By: Toyin Dior Follow Up Plan Follow up with: Savana Downey MD [Primary Care Provider] - (Dr. Downey's office will contact you to schedule a follow up appointment.) Patient Disposition: Home, Self-Care Rehab Potential: Fair I certify that the patient requires SNF services: No Overall status at discharge: patient is back to baseline Discharge Orders: Discharge Order (Routine); Ordered 04/08/22 Ordered By: Toyin Dior QUALITY VTE Deep Vein Thrombosis/Pulmonary Embolism Present on Admission: No
[2022-04-08] MEDS ORDERED: FISH OIL 1,000 MG CAPSULE PO SCH (21:00)
--- NOTE | 2022-04-09 10:14 | EKG ---
[facility] Test Date: 2022-04-07 Pat Name: Tammy Escalante Department: ED Room: Gender: Female [employer] S[employer]: : 1945 Requested By: Toyin Dior Order Number: [id number] Reading MD: Joel Goodman M.D. Measurements Intervals [place] Rate: 67 P: 17 MN: 173 QRS: 19 QRSD: 93 T: 16 QT: 392 QTc: 413 Interpretive Statements Sinus rhythm Electronically Signed On 04-09-2022 10:14:27 PST by Joel Goodman M.D. /[id number]
== END 2022-04-08 14:15 | disposition home or self-care (01) ==
LOC: ICU 14:03 → ED 14:03 → ICU 21:03
PROVIDERS: ADMIT Internal Medicine; ATTEND Internal Medicine